=== PATIENT | male | born 1935 | race Caucasian/White ===

== ENCOUNTER → 2016-06-15 | Outpatient (CLI) | payer OTHER ==
[~2016-06-15] MED LIST: ALPR1TAB3 PO; AMLO5TAB4 PO; ASPI-232 PO; ASPI81TA28 PO; ATOR-22 PO; ATV5 PO; CHOL2000 PO; CLOP1TAB15 PO; ERGO500037 PO; FESO4TAB PO; FURO-85 PO; ISOS60TA2 PO; LEVO25TA PO; LEVO50TA PO; LORA-741 PO; MELATAB2 PO; METO-551 PO; NTRGSL/4 UT; OMEP40CA41 PO; PANT1TAB48 PO; PRS5 PO; RAMI2.5C PO; RANO500T PO; TRAM-10 PO; ULT50X PO; lorazepam PO
--- NOTE | 2016-06-15 12:28 | DIAGNOSTIC IMAGING REPORT ---
THYROID AND NECK ULTRASOUND CLINICAL HISTORY: Palpable abnormality. Hypothyroidism. COMPARISON STUDY: None TECHNIQUE: Sonography of the thyroid gland and the neck was performed. FINDINGS: The right lobe measures 3.7 x 1.6 x 1.6 cm the left lobe measures 4.2 x 1.5 x 1.4 cm. No thyroid nodule identified. No mass, enlarged lymph node or other abnormalities identified within the neck at site of palpable abnormality. IMPRESSION: 1. Unremarkable thyroid ultrasound. 2. No mass, enlarged lymph node or other sonographic abnormality within the neck at site of palpable abnormality. Electronically signed by: Gm Douglas M.D. 06/15/2016 12:26 PM Dictated Date/Time: 06/15/2016 12:25 PM
== END | disposition home or self-care (01) ==
LOC: C.ULTR 10:42
PROVIDERS: ATTEND Family Medicine
DX: R22.1 Localized swelling, mass and lump, neck (principal); E03.9 Hypothyroidism, unspecified; R79.89 Other specified abnormal findings of blood chemistry

== ENCOUNTER 2016-10-10 22:53 | Inpatient (IN) | payer OTHER ==
[~2016-10-10] VITALS: Ht 177.8 cm; Wt 97.1 kg
[~2016-10-10 22:53] MED LIST changes: -ASPI81TA28 PO; -ATV5 PO; -CHOL2000 PO; -CLOP1TAB15 PO; -ERGO500037 PO; -FESO4TAB PO; -LEVO25TA PO; -LORA-741 PO; -MELATAB2 PO; -NTRGSL/4 UT; -OMEP40CA41 PO; -PRS5 PO; -RAMI2.5C PO; -TRAM-10 PO; -ULT50X PO; -lorazepam PO
[2016-10-10] MEDS ORDERED: OMEP40CA41 PO (23:27)
[2016-10-10] MEDS ORDERED: ERGO500037 PO (23:27)
[2016-10-10] MEDS ORDERED: RAMI2.5C PO (23:27)
[2016-10-10] MEDS ORDERED: CLOP1TAB15 PO (23:27)
[2016-10-10] MEDS ORDERED: SODIUM CHLORIDE 0.9% 1000ML 1,000 ML IV STA (23:43)
[2016-10-11] VITALS (7 sets, daily range): BP systolic 122–155; BP diastolic 64–76; PULSE 72–88; TEMP 36.3–36.7; O2SAT 91–95; Ht 177.8 cm; Wt 97.1 kg
[2016-10-11 00:15] LABS: BASO % 0.2 %; BASO ABS # 0.02 K/uL (0-0.2); COMPLETE YES; HEMATOCRIT 45.2 % (42-52); IG% 0.2 %; MEAN CELL VOLUME 90.2 fL (80-100); MEAN CORPUSCULAR HEMOGLOBIN 31.7 pg (25-34); MEAN CORPUSCULAR HGB CONC 35.2 g/dl (32-36); MONO % 8.3 %; NEUT % 63.3 %; PLATELET COUNT 211 K/uL (130-400); RED BLOOD COUNT 5.01 M/uL (4.7-6.1); WHITE BLOOD COUNT 8.41 K/uL (4.8-10.8)
[2016-10-11 00:27] LABS: PARTIAL THROMBOPLASTIN RATIO 1.1; PROTHROMBIN TIME (PATIENT) 10.5 SECONDS (9.0-12.0)
[2016-10-11 00:34] LABS: BUN/CREATININE RATIO 14.4 (10-20); CREATININE 1.6 mg/dl (0.60-1.40); POTASSIUM 3.9 mmol/L (3.5-5.1)
[2016-10-11 01:15] LABS: MANUAL MICROSCOPIC REQUIRED? YES; REVIEW REQ? NO; SULFASALICYLIC ACID POS (NEG); URINE APPEARANCE TURBID (CLEAR); URINE COLOR RED; URINE SPECIFIC GRAVITY 1.037 (1.000-1.030)
[2016-10-11 01:18] LABS: URINE BACTERIA NEG (NEG); URINE RBC >30 /hpf (0-4); URINE WBC >30 /hpf (0-5)
--- NOTE | 2016-10-11 01:46 | EMERGENCY ROOM VISIT NOTE ---
History Report prepared by Rj: Holli Rodriguez Under the Supervision of: Dr. Oscar Lyles M.D. First contact with patient: 23:27 Chief Complaint: HEMATURIA Stated Complaint: BLOOD IN URINE AND BURNING History of Present Illness The patient is an 81 year old male who presents to the Emergency Room with complaints of persistent hematuria starting 1900 today. He reports burning with urination. He is passing clots and had difficulty urinating because he feels clogged. He reports feeling woozy. He denies any back pain, nausea, vomiting, numbness, weakness, and abdominal pain. He denies any recent falls or injury. He has only one kidney after the other was removed due to kidney cancer 8-10 years ago. He is on Plavix. He denies any history of hematuria or kidney stones. Source of History: patient, family Onset: 1899 today Position: other (urinary) Quality: other (hematuria) Timing: other (persistent) Associated Symptoms: No nausea, No vomiting, No abdominal pain, No back pain , No weakness, No numbness Note: Pt reports dysuria, difficulty urinating due to clots, feeling woozy. Review of Systems See HPI for pertinent positives & negatives. A total of 10 systems reviewed and were otherwise negative. Past Medical & Surgical Medical Problems: (1) Heart catheterization (2) Heart disease (3) HTN (hypertension) (4) Kidney disease (5) Right pyelonephrotomy Surgical Problems: (1) H/O hernia repair (2) History of heart valve replacement Old medical records were reviewed. Nurse's notes were reviewed and I agree with. Family History FH: cancer FH: heart disease Hypertension Kidney disease or stones Social History Smoking Status: Never Smoker Alcohol Use: none Marital Status: single Housing Status: lives alone Occupation Status: retired Current/Historical Medications Scheduled Alprazolam (Xanax), 1 MG PO HS Amlodipine Besylate (Norvasc), 5 MG PO DAILY Aspirin (Aspir-81), 81 MG PO DAILY Atorvastatin (Lipitor), 10 MG PO DAILY Clopidogrel (Plavix), 75 MG PO DAILY Ergocalciferol (Vitamin D 62795 Unit), 50,000 UNIT PO WK Furosemide (Lasix), 20 MG PO QAM Isosorbide Mononitrate (Imdur Ext Rel), 60 MG PO QAM Levothyroxine Sodium (Synthroid), 50 MCG PO DAILY Metoprolol Tartrate (Lopressor), 50 MG PO BID Omeprazole (Prilosec), 40 MG PO DAILY Ramipril (Ramipril), 1 CAP PO DAILY Allergies Coded Allergies: No Known Allergies (Unverified , 10/10/16) Physical Exam Vital Signs Date Time Temp Pulse Resp B/P (MAP) Pulse Ox O2 Delivery O2 Flow Rate FiO2 10/11/16 00:59 88 20 179/92 95 Room Air 10/11/16 00:23 80 20 163/79 96 Room Air 10/10/16 22:57 36.7 86 18 163/87 93 Room Air Physical Exam General: Non ill appearing older male. Well developed well nourished in no acute distress, breathing comfortably on room air. Normal speech HEENT: Normal cephalic atraumatic. Pupils are equal round and reactive to light. Extraocular movements are intact. Oropharynx is pink with moist mucous membranes. No swelling of the mouth lips or tongue. Neck: Supple with a midline trachea. No meningeal signs or stiffness, no JVD or bruits. No Stridor. Chest: Clear to auscultation bilaterally. No wheezes or rhonchi. No increased work of breathing. Heart: regular rate and rhythm. Abdomen: Soft nontender, nondistended without rebound guarding or rigidity. Extremities: No cyanosis clubbing or edema. No calf tenderness or assymetry Spine/Back. Non tender to palpation. No CVA tenderness Skin: Good turgor without rashes. Neurologic exam: Cranial nerves two through 12 are intact. Motor and sensation are intact and symmetrical throughout. Medical Decision & Procedures ER Provider Diagnostic Interpretation: Radiology results as stated below per my review and [facility] radiologist interpretation: CT Abdomen & Pelvis: Comparison: CT abdomen and pelvis, 05/23/13. There is a 3.4 cm intraluminal mass in the right posterior aspect of the urinary bladder which may represent bladder mass versus blood. Bladder ultrasound may be helpful for clarification. Status post right nephrectomy. Left kidney parapelvic cysts. No hydronephrosis or radiopaque urolithiasis. Clear lung bases. Hepatic stenosis. Splenic calcifications indicating old granulomatous disease. Normal gallbladder, pancreas, and left adrenal gland. Low -density right adrenal nodules consistent with benign adenomas. No evidence of bowel obstruction. Normal appendix. Sigmoid diverticulosis without acute diverticulitis. Bilateral fat-containing inguinal hernias. Stable 2.1 cm peripherally calcified lesion in the right hemipelvis intimate with the right iliac vessels. No acute osseous findings. Laboratory Results 10/10/16 23:55 Red Blood Count 5.01, Mean Corpuscular Volume 90.2, Mean Corpuscular Hemoglobin 31.7, Mean Corpuscular Hemoglobin Concent 35.2, Mean Platelet Volume 12.0, Neutrophils (%) (Auto) 63.3, Lymphocytes (%) (Auto) 25.0, Monocytes (%) (Auto) 8.3, Eosinophils (%) (Auto) 3.0, Basophils (%) (Auto) 0.2, Neutrophils # (Auto) 5.32, Lymphocytes # (Auto) 2.10, Monocytes # (Auto) 0.70, Eosinophils # (Auto) 0.25, Basophils # (Auto) 0.02 10/10/16 23:55 Test 10/10/16 23:55 White Blood Count 8.41 K/uL (4.8-10.8) Red Blood Count 5.01 M/uL (4.7-6.1) Hemoglobin 15.9 g/dL (14.0-18.0) Hematocrit 45.2 % (42-52) Mean Corpuscular Volume 90.2 fL (80-100) Mean Corpuscular Hemoglobin 31.7 pg (25-34) Mean Corpuscular Hemoglobin Concent 35.2 g/dl (32-36) Platelet Count 211 K/uL (130-400) Mean Platelet Volume 12.0 fL (7.4-10.4) Neutrophils (%) (Auto) 63.3 % Lymphocytes (%) (Auto) 25.0 % Monocytes (%) (Auto) 8.3 % Eosinophils (%) (Auto) 3.0 % Basophils (%) (Auto) 0.2 % Neutrophils # (Auto) 5.32 K/uL (1.4-6.5) Lymphocytes # (Auto) 2.10 K/uL (1.2-3.4) Monocytes # (Auto) 0.70 K/uL (0.11-0.59) Eosinophils # (Auto) 0.25 K/uL (0-0.5) Basophils # (Auto) 0.02 K/uL (0-0.2) RDW Standard Deviation 44.2 fL (36.4-46.3) RDW Coefficient of Variation 13.4 % (11.5-14.5) Immature Granulocyte % (Auto) 0.2 % Immature Granulocyte # (Auto) 0.02 K/uL (0.00-0.02) Prothrombin Time 10.5 SECONDS (9.0-12.0) Prothromb Time International Ratio 1.0 (0.9-1.1) Activated Partial Thromboplast Time 28.8 SECONDS (21.0-31.0) Partial Thromboplastin Ratio 1.1 Urine Color RED Urine Appearance TURBID (CLEAR) Urine pH (4.5-7.5) Urine Specific [place] 1.037 (1.000-1.030) Urine Protein POS (NEG) Urine Glucose (UA) (NEG) Urine Ketones (NEG) Urine Occult Blood (NEG) Urine Nitrite (NEG) Urine Bilirubin (NEG) Urine Urobilinogen (NEG) Urine Leukocyte Esterase (NEG) Urine RBC >30 /hpf (0-4) Urine WBC >30 /hpf (0-5) Urine Epithelial Cells 0-5 /lpf (0-5) Urine Bacteria NEG (NEG) Anion Gap 12.0 mmol/L (3-11) Est Creatinine Clear Calc Drug Dose 40.9 ml/min Estimated GFR () 45.5 Estimated GFR (Non- 39.3 BUN/Creatinine Ratio 14.4 (10-20) Calcium Level 9.0 mg/dl (8.5-10.1) Total Bilirubin 0.5 mg/dl (0.2-1) Direct Bilirubin 0.1 mg/dl (0-0.2) Aspartate Amino Transf (AST/SGOT) 39 U/L (15-37) Alanine Aminotransferase (ALT/SGPT) 57 U/L (12-78) Alkaline Phosphatase 60 U/L (45-117) Total Protein 7.9 gm/dl (6.4-8.2) Albumin 4.2 gm/dl (3.4-5.0) Lipase 327 U/L (73-393) Laboratory studies as stated above per my review. Medications Administered Medications (Trade) Dose Ordered Sig/Jacqui Route Start Time Stop Time Status Last Admin Dose Admin Sodium Chloride 1,000 ml @ 999 mls/hr Q1H1M STAT IV 10/10/16 23:43 10/11/16 00:43 DC 10/11/16 00:04 999 MLS/HR ED Course 2333: Past medical records reviewed. The patient was evaluated in room C6, and a complete history and physical examination were performed. 2343: NSS 1000 ml @ 999 mls/hr IV. 0120: I discussed the patient's case with LEXY Pelayo - urology. He recommends the patient be admitted to medicine. 0127: Upon reevaluation, the patient is resting comfortably. I discussed the results and treatment plan with the patient. He verbalized agreement of the treatment plan. The patient will be evaluated for further management. 0139: I discussed the patient's case with Dr. Gonzalez, [facility] [place]. The patient will be evaluated for further management. Medical Decision Differentials include, but are not limited to; UTI, hematuria, kidney stone, malignancy, electrolyte or metabolic abnormality. Medication Reconciliation: I attest that I have personally reviewed the patient' s current medication list. Blood pressure Screening: Patient was found to have an elevated blood pressure and was referred to the hospitalist for recheck and further treatment. This patient comes in as described above. He had new onset hematuria today . he 's passing what looks like large clots at times. He appears to be passing his urine and appears in no distress however his bladder scan shows only 70 mL. He does have a history of having his right kidney removed and accordingly the patient said some bladder tumors as well. His urologist retired from the [place] area and he has not followed up since. I did on his noncontrast CT and he has what appears to be either a bladder tumor or a hematoma and it may be both. He is on Plavix which deftly complicates his. His urinalysis does not show any definite infection. His creatinine is about baseline at 16. He is not anemic with a hemoglobin the 15 range I did discuss case with Dr. Dsouza who recommended we admit him to the medical service and have him hydrated. He does not recommend putting a catheter and as he feels this could likely make it worse unless the patient cannot urinate and then call him and he will come in and do a likely a three-way catheter. I did consult Dr. Hall and relayed this message to him as well. The patient will likely need cystoscopy when the Plavix is no longer in his system and they'll also recommended holding the Plavix. The patient and his daughter were happy the plan and he will be admitted for these reasons. Consults Time Called: 0113 Consulting Physician: Dr. Dsouza [facility] - [place] Returned Call: 0120 I discussed the patient's case with him. He recommends the patient be admitted to medicine. Additional Consults: Time Called: 0125 Consulted Physician: Dr. Gonzalez [facility] hospitalist Returned Call: 0139 Additional Comments: I discussed the patient's case with him. The patient will be evaluated for further management. Impression Primary Impression: Hematuria Additional Impressions: Bladder mass Platelet inhibition due to Plavix Scribe Attestation The scribe's documentation has been prepared under my direction and personally reviewed by me in its entirety. I confirm that the note above accurately reflects all work, treatment, procedures, and medical decision making performed by me. Departure Information Dispostion Being Evaluated By Hospitalist Referrals Dora Mcmahon PA-C (PCP) Patient Instructions My [facility] Problem Qualifiers
[2016-10-11] MEDS ORDERED: ONDANSETRON INJ 2 MG/ML 2 ML VIAL IV PRN (03:30)
[2016-10-11] MEDS ORDERED: ACETAMINOPHEN 325 MG TAB PO PRN (03:30)
[2016-10-11] MEDS ORDERED: POLYETHYLENE (MIRALAX) 17 GM PACK PO PRN (03:30)
[2016-10-11] MEDS ORDERED: NURSING VERBAL MED ORDER ONE ×2 (03:45→18:45)
[2016-10-11] MEDS ORDERED: TAMSULOSIN HCL 0.4 MG CAP PO STA (03:49)
[2016-10-11] MEDS ORDERED: TAMSULOSIN HCL 0.4 MG CAP ONE (03:51)
[2016-10-11] MEDS: CEFTRIAXONE SOD INJ 1 GM in DEXTROSE 5% ADD-VANTAGE 50ML 50 ML IV SCH (04:19)
[2016-10-11] MEDS: SODIUM CHLORIDE 0.9% 1000ML 1,000 ML IV SCH ×3 (04:19→23:32)
--- NOTE | 2016-10-11 05:10 | History and Physical ---
History & Physical Date & Time of Service: Oct 11, 2016 at 04:55 Chief Complaint: Marilu Hematuria Primary Care Physician: Dora Mcmahon PA-C History of Present Illness Source: patient 81-year-old male with a past medical history of coronary artery disease status post cardiac catheterization, hypertension, status post right nephrectomy for renal cell carcinoma presented to the ER with complaints of persistent hematuria which started about 6 PM. The patient stated that he noticed marilu blood with clots while he was urinating and also had some dysuria. Denied any abdominal pain, nausea, vomiting, diarrhea. Complains of feeling slightly lightheaded but denied any chest pain, palpitations or difficulty breathing. Denied any history of trauma. Denies any history of kidney stones or hematuria in the past Past Medical/Surgical History Medical Problems: (1) Heart catheterization Status: Resolved (2) Heart disease Status: Chronic (3) HTN (hypertension) Status: Chronic (4) Kidney disease Status: Chronic (5) Right pyelonephrotomy Status: Resolved Surgical Problems: (1) H/O hernia repair Status: Resolved (2) History of heart valve replacement Status: Resolved Family History FH: cancer FH: heart disease Hypertension Kidney disease or stones Social History Smoking Status: Never Smoker Marital Status: single Occupational Status: retired Immunizations History of Influenza Vaccine: Yes Influenza Vaccine Date: Feb 20, 2013 History of Tetanus Vaccine?: Yes Tetanus Immunization Date: May 23, 2008 History of Pneumococcal: Yes Pneumococcal Date: May 23, 2010 History of Hepatitis B Vaccine: No Multi-Drug Resistant Organisms History of MDRO: No Allergies Coded Allergies: No Known Allergies (Unverified , 10/10/16) Home Medications Scheduled Alprazolam (Xanax), 1 MG PO HS Amlodipine Besylate (Norvasc), 5 MG PO DAILY Atorvastatin (Lipitor), 10 MG PO DAILY Ergocalciferol (Vitamin D 50126 Unit), 50,000 UNIT PO WK Furosemide (Lasix), 20 MG PO QAM Isosorbide Mononitrate (Imdur Ext Rel), 60 MG PO QAM Levothyroxine Sodium (Synthroid), 50 MCG PO DAILY Metoprolol Tartrate (Lopressor), 50 MG PO BID Omeprazole (Prilosec), 40 MG PO DAILY Ramipril (Ramipril), 1 CAP PO DAILY Scheduled PRN Lorazepam (Lorazepam), 0.5 MG PO Q12 PRN for Anxiety Tramadol HCl (Tramadol HCl), 50 MG PO Q4H PRN for Pain Review of Systems Constitutional: No fever, No chills Eyes: No worsening of vision ENT: No hearing loss Respiratory: No cough, No sputum, No shortness of breath Cardiovascular: No chest pain Abdomen: No pain, No nausea, No vomiting Musculoskeletal: No joint pain Genitourinary - Male: + hematuria (Marilu), + dysuria, No urinary frequency, No urinary urgency, No urinary hesitancy Neurologic: No memory loss, No paralysis Endocrine: No fatigue Physical Exam Vital Signs Date Time Temp Pulse Resp B/P (MAP) Pulse Ox O2 Delivery O2 Flow Rate FiO2 10/11/16 03:44 97 16 188/76 93 Room Air 10/11/16 02:30 76 20 154/89 95 Room Air 10/11/16 00:59 88 20 179/92 95 Room Air 10/11/16 00:23 80 20 163/79 96 Room Air 10/10/16 22:57 36.7 86 18 163/87 93 Room Air General Appearance: WD/WN, no apparent distress Head: normocephalic Eyes: normal inspection ENT: normal ENT inspection, hearing grossly normal Neck: supple Respiratory/Chest: chest non-tender, lungs clear, normal breath sounds, no respiratory distress, no accessory muscle use Cardiovascular: regular rate, rhythm Abdomen/GI: normal bowel sounds, non tender, soft Back: normal inspection Neurologic/Psych: alert, normal mood/affect Skin: normal color Diagnostics Laboratory Results Results Past 24 Hours Test 10/10/16 23:55 Range/Units White Blood Count 8.41 4.8-10.8 K/uL Red Blood Count 5.01 4.7-6.1 M/uL Hemoglobin 15.9 14.0-18.0 g/dL Hematocrit 45.2 42-52 % Mean Corpuscular Volume 90.2 80-100 fL Mean Corpuscular Hemoglobin 31.7 25-34 pg Mean Corpuscular Hemoglobin Concent 35.2 32-36 g/dl Platelet Count 211 130-400 K/uL Mean Platelet Volume 12.0 7.4-10.4 fL Neutrophils (%) (Auto) 63.3 % Lymphocytes (%) (Auto) 25.0 % Monocytes (%) (Auto) 8.3 % Eosinophils (%) (Auto) 3.0 % Basophils (%) (Auto) 0.2 % Neutrophils # (Auto) 5.32 1.4-6.5 K/uL Lymphocytes # (Auto) 2.10 1.2-3.4 K/uL Monocytes # (Auto) 0.70 0.11-0.59 K/uL Eosinophils # (Auto) 0.25 0-0.5 K/uL Basophils # (Auto) 0.02 0-0.2 K/uL RDW Standard Deviation 44.2 36.4-46.3 fL RDW Coefficient of Variation 13.4 11.5-14.5 % Immature Granulocyte % (Auto) 0.2 % Immature Granulocyte # (Auto) 0.02 0.00-0.02 K/uL Prothrombin Time 10.5 9.0-12.0 SECONDS Prothromb Time International Ratio 1.0 0.9-1.1 Activated Partial Thromboplast Time 28.8 21.0-31.0 SECONDS Partial Thromboplastin Ratio 1.1 Urine Color RED Urine Appearance TURBID CLEAR Urine pH 4.5-7.5 Urine Specific [place] 1.037 1.000-1.030 Urine Protein POS NEG Urine Glucose (UA) NEG Urine Ketones NEG Urine Occult Blood NEG Urine Nitrite NEG Urine Bilirubin NEG Urine Urobilinogen NEG Urine Leukocyte Esterase NEG Urine RBC >30 0-4 /hpf Urine WBC >30 0-5 /hpf Urine Epithelial Cells 0-5 0-5 /lpf Urine Bacteria NEG NEG Sodium Level 144 136-145 mmol/L Potassium Level 3.9 3.5-5.1 mmol/L Chloride Level 109 98-107 mmol/L Carbon Dioxide Level 23 21-32 mmol/L Anion Gap 12.0 3-11 mmol/L Blood Urea Nitrogen 23 7-18 mg/dl Creatinine 1.60 0.60-1.40 mg/dl Est Creatinine Clear Calc Drug Dose 40.9 ml/min Estimated GFR () 45.5 Estimated GFR (Non- 39.3 BUN/Creatinine Ratio 14.4 10-20 Random Glucose 125 70-99 mg/dl Calcium Level 9.0 8.5-10.1 mg/dl Total Bilirubin 0.5 0.2-1 mg/dl Direct Bilirubin 0.1 0-0.2 mg/dl Aspartate Amino Transf (AST/SGOT) 39 15-37 U/L Alanine Aminotransferase (ALT/SGPT) 57 12-78 U/L Alkaline Phosphatase 60 45-117 U/L Total Protein 7.9 6.4-8.2 gm/dl Albumin 4.2 3.4-5.0 gm/dl Lipase 327 73-393 U/L Microbiology Results 10/10/16 Urine Culture, Received Pending Diagnostic Radiology Abdominal CT scan: 3.4 cm and intraluminal mass in the right posterior aspect of the urinary bladder which may represent bladder mass versus blood. Bladder ultrasound may be helpful for clarification. Status post right nephrectomy. Left kidney parapelvic cysts. No hydronephrosis or radiopaque urolithiasis. Clear lung bases. Hepatic stenosis. Splenic calcifications indicating old granulomatous disease. Normal gallbladder, pancreas, and left adrenal gland. Low -density right adrenal nodules consistent with benign adenomas. No evidence of bowel obstruction. Normal appendix. Sigmoid diverticulosis without acute diverticulitis. Bilateral fat-containing inguinal hernias. Stable 2.1 cm peripherally calcified lesion in the right hemipelvis intimate with the right iliac vessels. No acute osseous findings. Impression Assessment and Plan 81-year-old male with a past medical history of coronary artery disease status post cardiac catheterization, hypertension, status post right nephrectomy for renal cell carcinoma presented to the ER with complaints of persistent hematuria which started about [address] abdomen and pelvis revealed 3.4 cm and intraluminal mass in the right posterior aspect of the urinary bladder which may represent bladder mass versus blood. Marilu hematuria with blood clots: Bladder mass versus stone versus blood clot - CT abdomen and pelvis : 3.4 cm intraluminal mass in the urinary bladder - Continue IV fluids - Consult urology - Flomax - No [place] catheter per urology - Rocephin IV empirically for potential infection - Nothing by mouth - Monitor H&H CKD status post right nephrectomy - Creatinine at 1.6, baseline around 1.4 -Continue IV fluids and monitor creatinine Coronary artery disease: Status post cardiac catheterization - Continue aspirin, Plavix, Lipitor, ramipril, Lopressor - Aspirin and Plavix have been continued for now considering history of coronary artery disease CHF: - Continue Lasix -Daily weights with I's and O's Hypertension: - Continue Norvasc and ramipril , Imdur Hypothyroidism: - Continue Synthroid DVT prophylaxis: SCDs Avoid chemical anticoagulation in light of hematuria DO NOT RESUSCITATE Disposition: Admitted to MedSurg Level of Care Med/Surg Resuscitation Status DO NOT RESUSCITATE VTE Prophylaxis VTE Risk Assessment Done? Y/N: Yes Risk Level: Moderate Given or contraindicated: SCD's Resident Tracking Resident Involvement: Resident Care Provided Care Provided: [facility] Medicine Assessment and Plan Attending Addendum: I have physically seen and examined this patient, have directed their medical care, have supervised the medical residents activities, and agree with the H&P as noted above, with the following changes: NONE
[2016-10-11] MEDS: LEVOTHYROXINE 50 MCG TAB PO SCH (06:00)
--- NOTE | 2016-10-11 07:07 | DIAGNOSTIC IMAGING REPORT ---
CT OF THE ABDOMEN AND PELVIS WITHOUT CONTRAST, STONE PROTOCOL CLINICAL HISTORY: Hematuria. History of renal cancer. COMPARISON STUDY: CT of the abdomen and pelvis May 23, 2013. TECHNIQUE: Helical axial images of the abdomen and pelvis were obtained without IV or oral contrast according to renal stone protocol. FINDINGS: Fatty infiltration of the liver is noted. The patient is status post right nephrectomy. Several right adrenal nodules are unchanged since exam of May 23, 2013 consistent with adenomas. There are no abnormalities within the right nephrectomy bed. Evaluation of the abdomen and pelvis is suboptimal on this unenhanced exam. There is fatty infiltration of the liver. There are left-sided parapelvic cysts. There is no left hydronephrosis. No left ureteral calculi are present. There is no evidence for a bowel obstruction. This extensive colonic diverticulosis without evidence for acute diverticulitis. A 2 cm peripherally calcified abnormality within the right hemipelvis is unchanged since CT of May 23, 2013. This is adjacent to the iliac vessels and could reflect a stable aneurysm or peripherally calcified lesion. Note is made of a 3.3 x 1.9 cm hyperdensity within the right posterior aspect of the bladder. There is no left hydronephrosis. No enlarged pelvic lymph nodes are present. There are fat-containing bilateral inguinal hernias. IMPRESSION: 1. 3.3 x 1.9 cm mass-like hyperdensity within the right posterior aspect of the bladder. This could reflect a urothelial malignancy or hemorrhage and could be correlated with cystoscopy. 2. Status post right nephrectomy. No evidence for recurrent malignancy within the nephrectomy bed. 3. Left-sided parapelvic cysts. No hydronephrosis. 4. Stable 2 cm peripherally calcified abnormality within the right hemipelvis adjacent to the iliac vessels. This could reflect a stable aneurysm or peripherally calcified lesion. Electronically signed by: Gm Douglas M.D. 10/11/2016 7:06 AM Dictated Date/Time: 10/11/2016 6:53 AM
[2016-10-11] MEDS: ISOSORBIDE MONONITRATE 60 MG TABCR PO SCH (08:11)
[2016-10-11] MEDS: FUROSEMIDE 20 MG TAB PO SCH (08:11)
[2016-10-11] MEDS: ENALAPRIL MALEATE 10 MG TAB PO SCH (08:12)
[2016-10-11] MEDS: ATORVASTATIN 20 MG TAB PO SCH (08:12)
[2016-10-11] MEDS: AMLODIPINE BESYLATE 5 MG TAB PO SCH (08:12)
[2016-10-11] MEDS: METOPROLOL TARTRATE 50 MG TAB PO SCH ×2 (08:12→21:04)
[2016-10-11] MEDS: PANTOprazole SOD 40 MG TAB PO SCH (08:13)
--- NOTE | 2016-10-11 08:31 | Urology Consultation ---
History General Date of Service: Oct 11, 2016. Chief Complaint: gross hematuria Primary Care Physician: Dora Mcmahon PA-C Pt seen a urologist before?: Yes (Dr. Beltran) If yes, why?: s/p right nephrectomy History of Present Illness 81 yo male presents to [facility] with c/o gross hematuria that started last evening around 7pm. He is s/p right nephrectomy [address] Last [address] Dr[address] Beltran 2 years ago. No urology f/u since. He reports difficulty voiding with some retention x 3hrs overnight, but then voided some clots and has been voiding well since. Urine remains [place] colored. H&H is stable at 15.9 and 45.2. Cr is noted to be slightly elevated at 1.6 Baseline of 1.3 noted last February. Pt had CT scan on admission showing ? 3cm bladder mass vs clot. He is currently on Plavix. Hx of cardiac cath and valve replacement. Imaging Imaging: CT Laboratory Last 24 Hours Test 10/10/16 23:55 White Blood Count 8.41 K/uL Red Blood Count 5.01 M/uL Hemoglobin 15.9 g/dL Hematocrit 45.2 % Mean Corpuscular Volume 90.2 fL Mean Corpuscular Hemoglobin 31.7 pg Mean Corpuscular Hemoglobin Concent 35.2 g/dl Platelet Count 211 K/uL Mean Platelet Volume 12.0 fL Neutrophils (%) (Auto) 63.3 % Lymphocytes (%) (Auto) 25.0 % Monocytes (%) (Auto) 8.3 % Eosinophils (%) (Auto) 3.0 % Basophils (%) (Auto) 0.2 % Neutrophils # (Auto) 5.32 K/uL Lymphocytes # (Auto) 2.10 K/uL Monocytes # (Auto) 0.70 K/uL Eosinophils # (Auto) 0.25 K/uL Basophils # (Auto) 0.02 K/uL RDW Standard Deviation 44.2 fL RDW Coefficient of Variation 13.4 % Immature Granulocyte % (Auto) 0.2 % Immature Granulocyte # (Auto) 0.02 K/uL Prothrombin Time 10.5 SECONDS Prothromb Time International Ratio 1.0 Activated Partial Thromboplast Time 28.8 SECONDS Partial Thromboplastin Ratio 1.1 Urine Color RED Urine Appearance TURBID Urine pH Urine Specific [place] 1.037 Urine Protein POS Urine Glucose (UA) Urine Ketones Urine Occult Blood Urine Nitrite Urine Bilirubin Urine Urobilinogen Urine Leukocyte Esterase Urine RBC >30 /hpf Urine WBC >30 /hpf Urine Epithelial Cells 0-5 /lpf Urine Bacteria NEG Sodium Level 144 mmol/L Potassium Level 3.9 mmol/L Chloride Level 109 mmol/L Carbon Dioxide Level 23 mmol/L Anion Gap 12.0 mmol/L Blood Urea Nitrogen 23 mg/dl Creatinine 1.60 mg/dl Est Creatinine Clear Calc Drug Dose 40.9 ml/min Estimated GFR () 45.5 Estimated GFR (Non- 39.3 BUN/Creatinine Ratio 14.4 Random Glucose 125 mg/dl Calcium Level 9.0 mg/dl Total Bilirubin 0.5 mg/dl Direct Bilirubin 0.1 mg/dl Aspartate Amino Transf (AST/SGOT) 39 U/L Alanine Aminotransferase (ALT/SGPT) 57 U/L Alkaline Phosphatase 60 U/L Total Protein 7.9 gm/dl Albumin 4.2 gm/dl Lipase 327 U/L Problem List Medical Problems: (1) Bladder mass Status: Acute (2) Hematuria Status: Acute (3) Platelet inhibition due to Plavix Status: Acute Past History cancer (kidney), coronary artery disease, hypertension, other (kidney disease) Past Surgical History: cardiac catheterization, other (hernia repair, heart valve replacement, right nephrectomy ) Family History FH: cancer FH: heart disease Hypertension Kidney disease or stones Social History Hx Tobacco Use In Past Year?: No Smoking: non-smoker Drug use: none Marital status: single Occupation status: retired Immunizations History of Influenza Vaccine: Yes Influenza Vaccine Date: Feb 20, 2013 History of Tetanus Vaccine?: Yes Tetanus Immunization Date: May 23, 2008 History of Pneumococcal: Yes Pneumococcal Date: May 23, 2010 History of Hepatitis B Vaccine: No History of MDRO No Allergies Coded Allergies: No Known Allergies (Unverified , 10/10/16) Medications Home Medications: Home Meds and Scripts Medications Dose Route/Sig Max Daily Dose Days Date Category Dose Instructions Ramipril 2.5 Mg Cap 1 Cap PO DAILY 90 10/10/16 Reported Vitamin D 37015 Unit (Ergocalciferol) 50,000 Unit Cap 50,000 Unit PO WK 10/10/16 Reported wednesdays Plavix (Clopidogrel Bisulfate) 75 Mg Tab 75 Mg PO DAILY 10/10/16 Reported Prilosec (Omeprazole) 40 Mg Cap 40 Mg PO DAILY 10/10/16 Reported Lipitor (Atorvastatin Calcium) 20 Mg Tab 10 Mg PO DAILY 10/27/14 Reported Lasix (Furosemide) 20 Mg Tab 20 Mg PO QAM 05/25/13 Rx Aspir-81 (Aspirin) 81 Mg Tab 81 Mg PO DAILY 05/23/13 Reported Imdur Ext Rel (Isosorbide Mononitrate) 60 Mg Tab 60 Mg PO QAM 05/23/13 Reported Synthroid (Levothyroxine Sodium) 50 Mcg Tab 50 Mcg PO DAILY 05/23/13 Reported Norvasc (Amlodipine Besylate) 5 Mg Tab 5 Mg PO DAILY 05/23/13 Reported Lopressor (Metoprolol Tartrate) 50 Mg Tab 50 Mg PO BID 05/23/13 Reported Xanax (Alprazolam) 1 Mg Tab 1 Mg PO HS 05/23/13 Reported Inpatient Medications: Current Inpatient Medications Medications (Trade) Dose Ordered Sig/Jacqui Route Start Time Stop Time Status Last Admin Dose Admin Acetaminophen (Tylenol Tab) 650 mg Q4H PRN PO 10/11/16 03:30 11/10/16 03:29 Polyethylene (Miralax Powder Packet) 17 gm DAILY PRN PO 10/11/16 03:30 11/10/16 03:29 Ondansetron HCl (Zofran Inj) 4 mg Q6H PRN IV 10/11/16 03:30 11/10/16 03:29 Alprazolam (Xanax Tab) 1 mg HS PO 10/11/16 21:00 11/10/16 20:59 Amlodipine Besylate (Norvasc Tab) 5 mg DAILY PO 10/11/16 09:00 11/10/16 08:59 Aspirin (Ecotrin Tab) 81 mg DAILY PO 10/11/16 09:00 11/10/16 08:59 Atorvastatin Calcium (Lipitor Tab) 10 mg DAILY PO 10/11/16 09:00 11/10/16 08:59 Clopidogrel Bisulfate (plAVix TAB) 75 mg DAILY PO 10/11/16 09:00 11/10/16 08:59 Furosemide (Lasix Tab) 20 mg QAM PO 10/11/16 09:00 11/10/16 08:59 Isosorbide Mononitrate (Imdur Ext Rel Tab) 60 mg QAM PO 10/11/16 09:00 11/10/16 08:59 Levothyroxine Sodium (Synthroid Tab) 50 mcg DAILYBB PO 10/11/16 06:00 11/10/16 06:59 Metoprolol Tartrate (Lopressor Tab) 50 mg BID PO 10/11/16 09:00 11/10/16 08:59 Pantoprazole Sodium (Protonix Tab) 40 mg DAILY PO 10/11/16 09:00 11/10/16 08:59 Enalapril Maleate (Vasotec Tab) 10 mg QAM PO 10/11/16 09:00 11/10/16 08:59 Sodium Chloride 1,000 ml @ 100 mls/hr Q10H IV 10/11/16 04:00 11/10/16 03:59 10/11/16 04:19 100 MLS/HR Ceftriaxone Sodium 1 gm/ Dextrose 50 ml @ 100 mls/hr Q24H IV 10/11/16 04:00 10/21/16 03:59 10/11/16 04:19 100 MLS/HR Ciprofloxacin/ Dextrose 200 ml @ 100 mls/hr PREOP IV 10/12/16 06:00 10/12/16 18:00 Review of Systems Review of Systems Constitutional: No fever, No chills Eyes: No double vision Neurological: No dizzy Endocrine: No excessive thirst Gastrointestinal: No abdominal pain, No nausea, No vomiting Cardiovascular: No chest pain Respiratory: No shortness of breath Skin: No rash Musculoskeletal: No back pain Male : + blood in urine, No painful urination Physical Exam Vital Signs: Vital Signs Past 12 Hours Date Time Temp Pulse Resp B/P (MAP) Pulse Ox O2 Delivery O2 Flow Rate FiO2 10/11/16 07:57 36.3 88 15 143/76 (98) 95 Room Air 10/11/16 07:28 Room Air 10/11/16 04:00 36.6 81 18 155/76 94 Room Air 10/11/16 04:00 Room Air 10/11/16 03:44 97 16 188/76 93 Room Air 10/11/16 02:30 76 20 154/89 95 Room Air 10/11/16 00:59 88 20 179/92 95 Room Air 10/11/16 00:23 80 20 163/79 96 Room Air 10/10/16 22:57 36.7 86 18 163/87 93 Room Air Physical Exam: General Appearance: no apparent distress Eyes: bilateral eyes normal inspection ENT: hearing grossly normal Neck: no JVD Respiratory/Chest: no respiratory distress, no accessory muscle use Cardiovascular: no JVD Extremities: normal inspection Neurologic/Psychiatric: alert, normal mood/affect, oriented x 3 Skin: normal color Assessment & Plan Assessment & Plan A/P: Gross hematuria AFVSS. Recommend discontinuing all anticoagulation while actively bleeding. Discussed with Dr. Collins. Will hold for now. Recommend the pt have cysto and possible TURBT for ? bladder tumor. Unfortunately this cannot be performed tomorrow given his recent administration of Plavix and ASA this morning. Will tentatively plan for cysto with possible TURBT next 10-17. This can be done as an outpatient. Will order pre-op chest x-ray and EKG. UC&S is pending. Will order a urine cytology. For now, will avoid corral catheter and observe voiding and hematuria. Would need corral placed if he develops clot retention. Continue to monitor H&H. Supportive management with transfusions PRN. Thanks for the consult. Will continue to follow along with primary service at this time. Possible d/c home from [facility] if the pt is stable.
[2016-10-11] MEDS ORDERED: CLOPIDOGREL BISULFATE 75 MG TAB PO SCH (09:00)
[2016-10-11] MEDS ORDERED: ASPIRIN 81 MG ECTAB PO SCH (09:00)
--- NOTE | 2016-10-11 09:05 | DIAGNOSTIC IMAGING REPORT ---
CHEST 2 VIEWS ROUTINE CLINICAL HISTORY: Preoperative chest COMPARISON STUDY: 10/27/2014 FINDINGS: There are postsurgical changes of a midline sternotomy. There is no failure. There is no focal pulmonary consolidation. The heart is borderline enlarged. There is an azygos fissure. No pleural effusions are visualized.[ IMPRESSION: No active disease in the chest. Electronically signed by: Ford Rae M.D. 10/11/2016 9:04 AM Dictated Date/Time: 10/11/2016 9:03 AM
[2016-10-11 10:31] LABS: HEMATOCRIT 39.9 % (42-52)
--- NOTE | 2016-10-11 10:31 | Progress Note ---
Subjective Date of Service: Oct 11, 2016. Subjective Pt evaluation today including: conversation w/ patient, physical exam, lab review, conversation w/ regulatory affairs consultant, review of inpatient medication list Pain: pain when trying to void, relieved with urination PO Intake: poor Voiding: voiding difficulty (straining, pressure, hematuria) c/o difficulty urinating, strained for several hours last night until able to void completely this AM similar issue, has to void, very little output and mostly blood concern for clot retention appreciate urology consult, discussed with Brenna Mason plan for TURBT on Tuesday 10/17, can be outpatient goal is to hydrate, follow up urine culture and see if patient can void consistently Problem List Medical Problems: (1) Bladder mass Status: Acute (2) Hematuria Status: Acute (3) Platelet inhibition due to Plavix Status: Acute Review of Systems Cardiac: + edema (mild, chronic) Male : + hematuria, + problem reported (straining, retention) All Other Systems: Reviewed and Negative Medications Current Inpatient Medications Medications (Trade) Dose Ordered Sig/Jacqui Route Start Time Stop Time Status Last Admin Dose Admin Acetaminophen (Tylenol Tab) 650 mg Q4H PRN PO 10/11/16 03:30 11/10/16 03:29 Polyethylene (Miralax Powder Packet) 17 gm DAILY PRN PO 10/11/16 03:30 11/10/16 03:29 Ondansetron HCl (Zofran Inj) 4 mg Q6H PRN IV 10/11/16 03:30 11/10/16 03:29 Alprazolam (Xanax Tab) 1 mg HS PO 10/11/16 21:00 11/10/16 20:59 Amlodipine Besylate (Norvasc Tab) 5 mg DAILY PO 10/11/16 09:00 11/10/16 08:59 10/11/16 08:12 5 MG Atorvastatin Calcium (Lipitor Tab) 10 mg DAILY PO 10/11/16 09:00 11/10/16 08:59 10/11/16 08:12 10 MG Furosemide (Lasix Tab) 20 mg QAM PO 10/11/16 09:00 11/10/16 08:59 10/11/16 08:11 20 MG Isosorbide Mononitrate (Imdur Ext Rel Tab) 60 mg QAM PO 10/11/16 09:00 11/10/16 08:59 10/11/16 08:11 60 MG Levothyroxine Sodium (Synthroid Tab) 50 mcg DAILYBB PO 10/11/16 06:00 11/10/16 06:59 Metoprolol Tartrate (Lopressor Tab) 50 mg BID PO 10/11/16 09:00 11/10/16 08:59 10/11/16 08:12 50 MG Pantoprazole Sodium (Protonix Tab) 40 mg DAILY PO 10/11/16 09:00 11/10/16 08:59 10/11/16 08:13 40 MG Enalapril Maleate (Vasotec Tab) 10 mg QAM PO 10/11/16 09:00 11/10/16 08:59 10/11/16 08:12 10 MG Sodium Chloride 1,000 ml @ 100 mls/hr Q10H IV 10/11/16 04:00 11/10/16 03:59 10/11/16 04:19 100 MLS/HR Ceftriaxone Sodium 1 gm/ Dextrose 50 ml @ 100 mls/hr Q24H IV 10/11/16 04:00 10/21/16 03:59 10/11/16 04:19 100 MLS/HR Tramadol HCl (Ultram Tab) 50 mg Q4H PRN PO 10/11/16 10:15 11/10/16 10:14 UNV Objective Vital Signs Date Time Temp Pulse Resp B/P (MAP) Pulse Ox O2 Delivery O2 Flow Rate FiO2 10/11/16 08:48 95 Room Air 10/11/16 07:57 36.3 88 15 143/76 (98) 95 Room Air 10/11/16 07:28 Room Air 10/11/16 04:00 36.6 81 18 155/76 94 Room Air 10/11/16 04:00 Room Air 10/11/16 03:44 97 16 188/76 93 Room Air 10/11/16 02:30 76 20 154/89 95 Room Air 10/11/16 00:59 88 20 179/92 95 Room Air 10/11/16 00:23 80 20 163/79 96 Room Air 10/10/16 22:57 36.7 86 18 163/87 93 Room Air Physical Exam General Appearance: WD/WN, no apparent distress Eyes: normal inspection, EOMI, sclerae normal ENT: normal ENT inspection, hearing grossly normal, pharynx normal Neck: supple, no adenopathy, no JVD, trachea midline Respiratory/Chest: chest non-tender, lungs clear, normal breath sounds, no respiratory distress, no accessory muscle use Cardiovascular: regular rate, rhythm, no gallop, no JVD, no murmur Abdomen: normal bowel sounds, non tender, soft, no organomegaly, + distended ( mildly), + pertinent finding (suprapubic tenderness, fullness) Extremities: normal range of motion, non-tender, normal inspection, no calf tenderness, pelvis stable, + pedal edema (trace ) Neurologic/Psychiatric: coroner forensic technician II-XII nml as tested, no motor/sensory deficits, alert, normal mood/affect, oriented x 3 Skin: normal color, warm/dry, no rash Lymphatic: no adenopathy Laboratory Results Last 24 Hours Test 10/10/16 23:55 10/11/16 10:06 White Blood Count 8.41 K/uL Red Blood Count 5.01 M/uL Hemoglobin 15.9 g/dL Hematocrit 45.2 % Mean Corpuscular Volume 90.2 fL Mean Corpuscular Hemoglobin 31.7 pg Mean Corpuscular Hemoglobin Concent 35.2 g/dl Platelet Count 211 K/uL Mean Platelet Volume 12.0 fL Neutrophils (%) (Auto) 63.3 % Lymphocytes (%) (Auto) 25.0 % Monocytes (%) (Auto) 8.3 % Eosinophils (%) (Auto) 3.0 % Basophils (%) (Auto) 0.2 % Neutrophils # (Auto) 5.32 K/uL Lymphocytes # (Auto) 2.10 K/uL Monocytes # (Auto) 0.70 K/uL Eosinophils # (Auto) 0.25 K/uL Basophils # (Auto) 0.02 K/uL RDW Standard Deviation 44.2 fL RDW Coefficient of Variation 13.4 % Immature Granulocyte % (Auto) 0.2 % Immature Granulocyte # (Auto) 0.02 K/uL Prothrombin Time 10.5 SECONDS Prothromb Time International Ratio 1.0 Activated Partial Thromboplast Time 28.8 SECONDS Partial Thromboplastin Ratio 1.1 Urine Color RED Urine Appearance TURBID Urine pH Urine Specific [place] 1.037 Urine Protein POS Urine Glucose (UA) Urine Ketones Urine Occult Blood Urine Nitrite Urine Bilirubin Urine Urobilinogen Urine Leukocyte Esterase Urine RBC >30 /hpf Urine WBC >30 /hpf Urine Epithelial Cells 0-5 /lpf Urine Bacteria NEG Sodium Level 144 mmol/L Potassium Level 3.9 mmol/L Chloride Level 109 mmol/L Carbon Dioxide Level 23 mmol/L Anion Gap 12.0 mmol/L Blood Urea Nitrogen 23 mg/dl Creatinine 1.60 mg/dl Est Creatinine Clear Calc Drug Dose 40.9 ml/min Estimated GFR () 45.5 Estimated GFR (Non- 39.3 BUN/Creatinine Ratio 14.4 Random Glucose 125 mg/dl Calcium Level 9.0 mg/dl Total Bilirubin 0.5 mg/dl Direct Bilirubin 0.1 mg/dl Aspartate Amino Transf (AST/SGOT) 39 U/L Alanine Aminotransferase (ALT/SGPT) 57 U/L Alkaline Phosphatase 60 U/L Total Protein 7.9 gm/dl Albumin 4.2 gm/dl Lipase 327 U/L Assessment and Plan 81-year-old male with a past medical history of coronary artery disease status post cardiac catheterization, hypertension, status post right nephrectomy for renal cell carcinoma presented to the ER with complaints of persistent hematuria which started about [address] abdomen and pelvis revealed 3.4 cm and intraluminal mass in the right posterior aspect of the urinary bladder which may represent bladder mass versus blood. Jaswinder hematuria with blood clots: Bladder mass versus stone versus blood clot appreciate urology consult, patient needs TURBT, will be done 10/17 as outpatient need to allow Plavix to wash out, last dose was this morning, now discontinued will check H/H today and tomorrow follow up on urine culture, continue empiric Rocephin urine cytology ordered if he has issues with clot retention, will need corral d/w RN, she will bladder scan if unable to void in a few hours continue NSS at 100cc/hr Flomax CKD status post right nephrectomy Creatinine at 1.6 which is near baseline, no signs of acute renal failure Continue IV fluids, check BMP tomorrow AM Coronary artery disease: Status post cardiac catheterization hold aspirin and Plavix with bleeding and plans for TURBT next week continue Lipitor, ramipril, Lopressor Chronic diastolic heart failure: hold Lasix for now while we hydrate will watch closely for volume overload, pulmonary edema continue Ramipril, Lopressor Hypertension: - Continue Norvasc and ramipril , Imdur, Lopressor Hypothyroidism: - Continue Synthroid DVT prophylaxis: SCDs Avoid chemical anticoagulation in light of hematuria DO NOT RESUSCITATE
[2016-10-11] MEDS: TRAMADOL HCL 50 MG TAB PO PRN ×2 (13:40→18:22)
[2016-10-11] MEDS ORDERED: SODIUM CHLORIDE 0.9% 500ML 500 ML IV SCH (19:00)
[2016-10-11] MEDS ORDERED: LIDOCAINE HCL 2% JELLY 30 ML TUBE EXT ONE (19:39)
[2016-10-11] MEDS ORDERED: LIDOCAINE 2% JELLY 5 ML TUBE EXT PRN (19:45)
[2016-10-11] MEDS ORDERED: NURSING DECISION MEDICATION ORDER SCH (19:45)
[2016-10-11] MEDS: LORAZEPAM 0.5 MG TAB PO PRN (19:59)
[2016-10-11] MEDS: ALPRAZOLAM 0.5 MG TAB PO SCH (21:04)
[2016-10-12] VITALS (7 sets, daily range): BP systolic 122–166; BP diastolic 72–81; PULSE 65–85; TEMP 36.5–36.8; O2SAT 92–96
[2016-10-12] MEDS: CEFTRIAXONE SOD INJ 1 GM in DEXTROSE 5% ADD-VANTAGE 50ML 50 ML IV SCH (03:12)
[2016-10-12] MEDS ORDERED: CIPROFLOXACIN 400MG / 200ML D5W IV ONE (06:00)
[2016-10-12] MEDS: LEVOTHYROXINE 50 MCG TAB PO SCH (06:00)
[2016-10-12] MEDS ORDERED: CIPROFLOXACIN / D5W 400 MG IV SCH (06:00)
[2016-10-12 07:47] LABS: BASO % 0.3 %; BASO ABS # 0.02 K/uL (0-0.2); COMPLETE YES; EOS % 4.9 %; HEMATOCRIT 41.3 % (42-52); IG% 0.1 %; LYMPH % 29.2 %; LYMPH ABS # 2.13 K/uL (1.2-3.4); MEAN CELL VOLUME 91.6 fL (80-100); MEAN CORPUSCULAR HGB CONC 33.9 g/dl (32-36); MEAN PLATELET VOLUME 11.5 fL (7.4-10.4); NEUT % 55.5 %; PLATELET COUNT 185 K/uL (130-400); RED BLOOD COUNT 4.51 M/uL (4.7-6.1)
--- NOTE | 2016-10-12 08:21 | Progress Note ---
Subjective Date of Service: Oct 12, 2016. Subjective Pt evaluation today including: conversation w/ patient, chart review, lab review Voiding: corral catheter in place (14Fr corral catheter draining dark [place] urine ) 81 yo male with gross hematuria. ? bladder mass on CT. 14Fr corral catheter placed yesterday for clot retention. Draining dark [place] colored urine this morning with some clot. Plavix and ASA stopped yesterday. H&H of 14.0 and 41.3 this morning. Pt denies pain. Problem List Medical Problems: (1) Bladder mass Status: Acute (2) Hematuria Status: Acute (3) Platelet inhibition due to Plavix Status: Acute Review of Systems Constitutional: No fever, No chills Respiratory: No shortness of breath Cardiac: No chest pain Abdomen: No pain, No nausea, No vomiting Male : + hematuria Heme: + abnormal bleeding/bruising Objective Vital Signs Date Time Temp Pulse Resp B/P (MAP) Pulse Ox O2 Delivery O2 Flow Rate FiO2 10/12/16 07:43 36.5 65 12 132/78 (96) 95 Room Air 10/12/16 07:30 Room Air 10/11/16 23:38 Room Air 10/11/16 23:19 36.5 72 16 130/64 (86) 91 Room Air 10/11/16 21:00 73 133/69 (90) 10/11/16 19:30 95 Room Air 10/11/16 15:23 36.7 79 16 122/73 (89) 95 Room Air 10/11/16 08:48 95 Room Air Physical Exam General Appearance: no apparent distress Eyes: normal inspection ENT: hearing grossly normal Neck: no JVD Respiratory/Chest: no respiratory distress, no accessory muscle use Cardiovascular: no JVD Extremities: normal inspection Neurologic/Psychiatric: alert, normal mood/affect, oriented x 3 Skin: normal color Laboratory Results Last 24 Hours Test 10/11/16 10:06 10/12/16 07:25 Hemoglobin 13.3 g/dL 14.0 g/dL Hematocrit 39.9 % 41.3 % White Blood Count 7.30 K/uL Red Blood Count 4.51 M/uL Mean Corpuscular Volume 91.6 fL Mean Corpuscular Hemoglobin 31.0 pg Mean Corpuscular Hemoglobin Concent 33.9 g/dl Platelet Count 185 K/uL Mean Platelet Volume 11.5 fL Neutrophils (%) (Auto) 55.5 % Lymphocytes (%) (Auto) 29.2 % Monocytes (%) (Auto) 10.0 % Eosinophils (%) (Auto) 4.9 % Basophils (%) (Auto) 0.3 % Neutrophils # (Auto) 4.05 K/uL Lymphocytes # (Auto) 2.13 K/uL Monocytes # (Auto) 0.73 K/uL Eosinophils # (Auto) 0.36 K/uL Basophils # (Auto) 0.02 K/uL RDW Standard Deviation 46.3 fL RDW Coefficient of Variation 13.8 % Immature Granulocyte % (Auto) 0.1 % Immature Granulocyte # (Auto) 0.01 K/uL Assessment and Plan A/P: Gross hematuria Hematuria persists today. Unfortunately a 14Fr catheter is not ideal for gross hematuria. Will leave in place for now though. Will have the nursing staff start flushing catheter qshift. If unable to flush or the catheter becomes clogged, will need to replace corral catheter with a 22Fr 3-way corral. Continue to hold Plavix and ASA while actively bleeding and for cysto with potential TURBT planned for 10-17-16. Continue to monitor H&H. Supportive management with transfusions PRN. Will continue to follow along with primary service at this time. Continued [facility] stay due to: other (gross hematuria)
[2016-10-12 08:24] LABS: BUN/CREATININE RATIO 14.3 (10-20); CREATININE 1.3 mg/dl (0.60-1.40)
[2016-10-12 08:26] LABS: CALCIUM 8.1 mg/dl (8.5-10.1)
--- NOTE | 2016-10-12 09:36 | Clinical Documentation Query ---
CLINICAL DOCUMENTATION QUERY Dr. VALDEZ, In your clinical opinion is this patient being managed for: ( x ) Chronic kidney disease, stage 3 ( ) Other explanation of clinical findings (Please Explain) ( ) Unable to determine (Please Define) ( ) Need to Discuss ( ) Not Agree The medical record reflects the following clinical findings, treatment, and risk factors. Clinical Indicators: 81 yo male presenting with gross hematuria. H&P and Progress notes indicate pt has CKD. Review of historical GFR shows range of 39.3-50.5 over the past 2 years Treatment: monitor PRP's Risk Factors: age, R nephrectomy, HTN, CHF Please clarify and document your clinical opinion in the progress notes and discharge summary. Terms such as "probable", "suspected", "likely", "questionable", "possible", or "still to be ruled out" are acceptable. IF IN AGREEMENT, YOU MUST DOCUMENT ABOVE DIAGNOSTIC STATEMENT IN DAILY PROGRESS NOTES AND DISCHARGE SUMMARY. This document is not part of the patient's record. Thank You, Cecilia Chacko RN [phone]
[2016-10-12] MEDS: SODIUM CHLORIDE 0.9% 1000ML 1,000 ML IV SCH ×2 (09:59→19:44)
[2016-10-12] MEDS: ISOSORBIDE MONONITRATE 60 MG TABCR PO SCH (10:00)
[2016-10-12] MEDS: PANTOprazole SOD 40 MG TAB PO SCH (10:00)
[2016-10-12] MEDS: ATORVASTATIN 20 MG TAB PO SCH (10:00)
[2016-10-12] MEDS: ENALAPRIL MALEATE 10 MG TAB PO SCH (10:00)
[2016-10-12] MEDS: METOPROLOL TARTRATE 50 MG TAB PO SCH ×2 (10:00→21:20)
[2016-10-12] MEDS: AMLODIPINE BESYLATE 5 MG TAB PO SCH (10:01)
--- NOTE | 2016-10-12 15:22 | Progress Note ---
Subjective Date of Service: Oct 12, 2016. Subjective Pt evaluation today including: conversation w/ patient, physical exam, lab review, conversation w/ home planning consultant salesperson, review of inpatient medication list Pain: less pain today after corral placed PO Intake: adequate Voiding: corral catheter in place called last night when patient was shaking with trying to void, clot retention corral placed, [place] colored urine drained overnight, less pain appreciated urology note, ideally he should have triple lumen for irrigation, will try to irrigate with single lumen less blood today, urine clearing up Problem List Medical Problems: (1) Bladder mass Status: Acute (2) Hematuria Status: Acute (3) Platelet inhibition due to Plavix Status: Acute Review of Systems Constitutional: + weakness, + fatigue Male : + hematuria (with clots), + problem reported (less pain today with corral) All Other Systems: Reviewed and Negative Medications Current Inpatient Medications Medications (Trade) Dose Ordered Sig/Jacqui Route Start Time Stop Time Status Last Admin Dose Admin Acetaminophen (Tylenol Tab) 650 mg Q4H PRN PO 10/11/16 03:30 11/10/16 03:29 Polyethylene (Miralax Powder Packet) 17 gm DAILY PRN PO 10/11/16 03:30 11/10/16 03:29 Ondansetron HCl (Zofran Inj) 4 mg Q6H PRN IV 10/11/16 03:30 11/10/16 03:29 Alprazolam (Xanax Tab) 1 mg HS PO 10/11/16 21:00 11/10/16 20:59 10/11/16 21:04 1 MG Amlodipine Besylate (Norvasc Tab) 5 mg DAILY PO 10/11/16 09:00 11/10/16 08:59 10/12/16 10:01 5 MG Atorvastatin Calcium (Lipitor Tab) 10 mg DAILY PO 10/11/16 09:00 11/10/16 08:59 10/12/16 10:00 10 MG Furosemide (Lasix Tab) 20 mg QAM PO 10/11/16 09:00 11/10/16 08:59 Future Hold 10/11/16 08:11 20 MG Isosorbide Mononitrate (Imdur Ext Rel Tab) 60 mg QAM PO 10/11/16 09:00 11/10/16 08:59 10/12/16 10:00 60 MG Levothyroxine Sodium (Synthroid Tab) 50 mcg DAILYBB PO 10/11/16 06:00 11/10/16 06:59 10/12/16 06:00 50 MCG Metoprolol Tartrate (Lopressor Tab) 50 mg BID PO 10/11/16 09:00 11/10/16 08:59 10/12/16 10:00 50 MG Pantoprazole Sodium (Protonix Tab) 40 mg DAILY PO 10/11/16 09:00 11/10/16 08:59 10/12/16 10:00 40 MG Enalapril Maleate (Vasotec Tab) 10 mg QAM PO 10/11/16 09:00 11/10/16 08:59 10/12/16 10:00 10 MG Sodium Chloride 1,000 ml @ 100 mls/hr Q10H IV 10/11/16 04:00 11/10/16 03:59 10/12/16 09:59 100 MLS/HR Ceftriaxone Sodium 1 gm/ Dextrose 50 ml @ 100 mls/hr Q24H IV 10/11/16 04:00 10/21/16 03:59 10/12/16 03:12 100 MLS/HR Tramadol HCl (Ultram Tab) 50 mg Q4H PRN PO 10/11/16 10:15 11/10/16 10:14 10/11/16 18:22 50 MG Lorazepam (Ativan Tab) 0.5 mg Q8H PRN PO 10/11/16 19:00 11/10/16 18:59 10/11/16 19:59 0.5 MG Lidocaine HCl (Xylocaine Jelly 2%) 1 ml DAILY PRN EXT 10/11/16 19:45 11/10/16 19:44 Objective Vital Signs Date Time Temp Pulse Resp B/P (MAP) Pulse Ox O2 Delivery O2 Flow Rate FiO2 10/12/16 08:36 95 Room Air 10/12/16 07:43 36.5 65 12 132/78 (96) 95 Room Air 10/12/16 07:30 Room Air 10/11/16 23:38 Room Air 10/11/16 23:19 36.5 72 16 130/64 (86) 91 Room Air 10/11/16 21:00 73 133/69 (90) 10/11/16 19:30 95 Room Air 10/11/16 15:23 36.7 79 16 122/73 (89) 95 Room Air Physical Exam General Appearance: WD/WN, no apparent distress Neck: supple, no adenopathy, no JVD, trachea midline Respiratory/Chest: chest non-tender, lungs clear, normal breath sounds, no respiratory distress, no accessory muscle use Cardiovascular: regular rate, rhythm, no edema, no gallop, no JVD, no murmur Abdomen: normal bowel sounds, non tender, soft, no organomegaly Extremities: normal range of motion, non-tender, normal inspection, no pedal edema, no calf tenderness Neurologic/Psychiatric: intelligence agent II-XII nml as tested, no motor/sensory deficits, alert, normal mood/affect, oriented x 3 Skin: normal color, warm/dry, no rash Lymphatic: no adenopathy Laboratory Results Last 24 Hours Test 10/12/16 07:25 White Blood Count 7.30 K/uL Red Blood Count 4.51 M/uL Hemoglobin 14.0 g/dL Hematocrit 41.3 % Mean Corpuscular Volume 91.6 fL Mean Corpuscular Hemoglobin 31.0 pg Mean Corpuscular Hemoglobin Concent 33.9 g/dl Platelet Count 185 K/uL Mean Platelet Volume 11.5 fL Neutrophils (%) (Auto) 55.5 % Lymphocytes (%) (Auto) 29.2 % Monocytes (%) (Auto) 10.0 % Eosinophils (%) (Auto) 4.9 % Basophils (%) (Auto) 0.3 % Neutrophils # (Auto) 4.05 K/uL Lymphocytes # (Auto) 2.13 K/uL Monocytes # (Auto) 0.73 K/uL Eosinophils # (Auto) 0.36 K/uL Basophils # (Auto) 0.02 K/uL RDW Standard Deviation 46.3 fL RDW Coefficient of Variation 13.8 % Immature Granulocyte % (Auto) 0.1 % Immature Granulocyte # (Auto) 0.01 K/uL Sodium Level 142 mmol/L Potassium Level 4.0 mmol/L Chloride Level 108 mmol/L Carbon Dioxide Level 24 mmol/L Anion Gap 10.0 mmol/L Blood Urea Nitrogen 19 mg/dl Creatinine 1.30 mg/dl Est Creatinine Clear Calc Drug Dose 50.3 ml/min Estimated GFR () 58.5 Estimated GFR (Non- 50.5 BUN/Creatinine Ratio 14.3 Random Glucose 114 mg/dl Calcium Level 8.1 mg/dl Magnesium Level 2.0 mg/dl Assessment and Plan 81-year-old male with a past medical history of coronary artery disease status post cardiac catheterization, hypertension, status post right nephrectomy for renal cell carcinoma presented to the ER with complaints of persistent hematuria which started about [address] abdomen and pelvis revealed 3.4 cm and intraluminal mass in the right posterior aspect of the urinary bladder which may represent bladder mass versus blood. Jaswinder hematuria with blood clots: Bladder mass versus stone versus blood clot appreciate urology consult, patient needs TURBT, will be done 10/17 as outpatient need to allow Plavix to wash out, last dose 10/11, now discontinued H/H stable and BP stable corral placed, flushing PRN, less bleeding today pinpoint growth on culture, continue empiric Rocephin for 3 doses then stop urine cytology ordered - pending continue IV fluids, Flomax CKD status post right nephrectomy Creatinine at 1.3 which is baseline, no signs of acute renal failure Continue IV fluids, check BMP tomorrow AM Coronary artery disease: Status post cardiac catheterization hold aspirin and Plavix with bleeding and plans for TURBT next week continue Lipitor, ramipril, Lopressor Chronic diastolic heart failure: hold Lasix for now while we hydrate will watch closely for volume overload, pulmonary edema continue Ramipril, Lopressor likely stop fluids tomorrow and resume Lasix Hypertension: - Continue Norvasc and ramipril , Imdur, Lopressor Hypothyroidism: - Continue Synthroid DVT prophylaxis: SCDs Avoid chemical anticoagulation in light of hematuria DO NOT RESUSCITATE Continued [facility] stay due to: other (gross hematuria)
[2016-10-12] MEDS: LORAZEPAM 0.5 MG TAB PO PRN (15:57)
[2016-10-12] MEDS: TRAMADOL HCL 50 MG TAB PO PRN (18:19)
--- NOTE | 2016-10-12 20:25 | Progress Note ---
Progress Note Date of Service Oct 12, 2016. Progress Note Called because nursing staff was unable to successfully place a corral catheter - on arrival, pt noted to have dark red blood dripping from meatus - reports some discomfort - 22F hematuria catheter inserted with aseptic technique - return of clear urine after passage through bladder neck - irrigated to confirm - and irrigant returned easily - input port capped - no CBI necessary at the moment A/P: Hematuria - suspected bladder tumor - on review, he is s/p R nephrectomy - and I suspect this may have been a nephro -ureterectomy. He also reports that Dr. Beltran scraped his bladder on several occasions. - this further increases my suspicion that he harbors a bladder tumor - he has been holding his plavix for 24+ hours. - assuming he remains stable over the weekend, we will plan for TURBT early next week
[2016-10-12] MEDS: ALPRAZOLAM 0.5 MG TAB PO SCH (21:24)
[2016-10-13] MEDS: LORAZEPAM 0.5 MG TAB PO PRN ×2 (01:23→20:16)
[2016-10-13] MEDS: CEFTRIAXONE SOD INJ 1 GM in DEXTROSE 5% ADD-VANTAGE 50ML 50 ML IV SCH (03:39)
[2016-10-13] MEDS: LEVOTHYROXINE 50 MCG TAB PO SCH (05:48)
[2016-10-13] MEDS: SODIUM CHLORIDE 0.9% 1000ML 1,000 ML IV SCH (05:48)
[2016-10-13 07:17] VITALS: BP 150/76; PULSE 69; TEMP 36.9; O2SAT 93
[2016-10-13 07:25] LABS: BASO % 0.1 %; BASO ABS # 0.01 K/uL (0-0.2); COMPLETE YES; EOS % 3.8 %; HEMATOCRIT 36.8 % (42-52); IG% 0.2 %; LYMPH % 22.2 %; LYMPH ABS # 2.26 K/uL (1.2-3.4); MEAN CELL VOLUME 91.1 fL (80-100); MEAN CORPUSCULAR HEMOGLOBIN 30.4 pg (25-34); MEAN CORPUSCULAR HGB CONC 33.4 g/dl (32-36); MEAN PLATELET VOLUME 11.9 fL (7.4-10.4); MONO % 11.2 %; NEUT % 62.5 %; PLATELET COUNT 170 K/uL (130-400); RED BLOOD COUNT 4.04 M/uL (4.7-6.1); WHITE BLOOD COUNT 10.17 K/uL (4.8-10.8)
[2016-10-13] MEDS: ISOSORBIDE MONONITRATE 60 MG TABCR PO SCH (08:18)
[2016-10-13] MEDS: ATORVASTATIN 20 MG TAB PO SCH (08:18)
[2016-10-13] MEDS: METOPROLOL TARTRATE 50 MG TAB PO SCH ×2 (08:19→21:42)
[2016-10-13] MEDS: AMLODIPINE BESYLATE 5 MG TAB PO SCH (08:19)
[2016-10-13] MEDS: ENALAPRIL MALEATE 10 MG TAB PO SCH (08:19)
[2016-10-13] MEDS: PANTOprazole SOD 40 MG TAB PO SCH (08:19)
--- NOTE | 2016-10-13 08:33 | Progress Note ---
Progress Note Date of Service Oct 13, 2016. Progress Note No issues overnight after catheter insertion - urine remains completely clear this AM - subjectively feeling fine Vital Signs Past 12 Hours Date Time Temp Pulse Resp B/P (MAP) Pulse Ox O2 Delivery O2 Flow Rate FiO2 10/13/16 08:10 Room Air 10/13/16 07:17 36.9 69 19 150/76 (100) 93 Room Air 10/13/16 01:34 Room Air 10/12/16 23:10 36.8 66 16 153/81 (105) 95 Room Air 10/12/16 21:17 74 155/81 (105) 10/13/16 06:32 Red Blood Count 4.04, Mean Corpuscular Volume 91.1, Mean Corpuscular Hemoglobin 30.4, Mean Corpuscular Hemoglobin Concent 33.4, Mean Platelet Volume 11.9, Neutrophils (%) (Auto) 62.5, Lymphocytes (%) (Auto) 22.2, Monocytes (%) (Auto) 11.2, Eosinophils (%) (Auto) 3.8, Basophils (%) (Auto) 0.1, Neutrophils # (Auto ) 6.35, Lymphocytes # (Auto) 2.26, Monocytes # (Auto) 1.14, Eosinophils # (Auto ) 0.39, Basophils # (Auto) 0.01 Test 10/13/16 06:32 White Blood Count 10.17 K/uL (4.8-10.8) Red Blood Count 4.04 M/uL (4.7-6.1) Hemoglobin 12.3 g/dL (14.0-18.0) Hematocrit 36.8 % (42-52) Mean Corpuscular Volume 91.1 fL (80-100) Mean Corpuscular Hemoglobin 30.4 pg (25-34) Mean Corpuscular Hemoglobin Concent 33.4 g/dl (32-36) Platelet Count 170 K/uL (130-400) Mean Platelet Volume 11.9 fL (7.4-10.4) Neutrophils (%) (Auto) 62.5 % Lymphocytes (%) (Auto) 22.2 % Monocytes (%) (Auto) 11.2 % Eosinophils (%) (Auto) 3.8 % Basophils (%) (Auto) 0.1 % Neutrophils # (Auto) 6.35 K/uL (1.4-6.5) Lymphocytes # (Auto) 2.26 K/uL (1.2-3.4) Monocytes # (Auto) 1.14 K/uL (0.11-0.59) Eosinophils # (Auto) 0.39 K/uL (0-0.5) Basophils # (Auto) 0.01 K/uL (0-0.2) RDW Standard Deviation 45.4 fL (36.4-46.3) RDW Coefficient of Variation 13.7 % (11.5-14.5) Immature Granulocyte % (Auto) 0.2 % Immature Granulocyte # (Auto) 0.02 K/uL (0.00-0.02) NAD hard of hearing AAOx3 no resp distress RRR abd soft urine clear A/P: Hematuria - resolved - given clear urine and overall stability, I think discharge home is likely very reasonable - I have discussed that he may harbor a bladder tumor - he is off of his plavix right now - I recommend d/c home today with the patient continuing to hold his plavix and likely cystoscopy and TURBT as an outpt early next week - voiding trial prior to d/c home
--- NOTE | 2016-10-13 11:02 | Discharge Instructions ---
Discharge Instructions Date of Service Oct 13, 2016. Admission Reason for Admission: Jaswinder Hematuria Discharge Discharge Diagnosis / Problem: Hematuria, suspected bladder tumor Discharge Goals Goal(s): Diagnostic testing (cystoscopy early next week), Therapeutic intervention (cystoscopy) Activity Recommendations Activity Limitations: resume your previous activity Lifting Limitations: none Exercise/Sports Limitations: as tolerated Shower/Bathe: no limitations . Instructions / Follow-Up Instructions / Follow-Up Medications: - ATIVAN (lorazepam): take as needed for any excess anxiety with urinating, this is what you received in the hospital and it helped DO NOT take more than twice a day, DO NOT take at the same time as your scheduled Xanax - ULTRAM: take as needed for any pain associated with urinating, do not take more than prescribed - PLAVIX and ASPIRIN: do not take these medications... on hold due to bleeding from the bladder and plan for cystoscopy with removal of suspected bladder tumor you had a drug eluting stent in your coronary artery in February 2016 according to outpatient records you will need to resume the aspirin and Plavix as soon as it is okay with Dr. Sharpe it is safe at this point to hold these medications for a short time while you get this procedure which is necessary Hematuria: due to suspected bladder tumor seen on CT scan, you need a cystoscopy with resection of the bladder tumor, early next week Dr. Sharpe's office arranging the timing of procedure, they will contact you/daughter with details you had bladder irrigation and your urine became clear you were able to void after corral removed get rest this , no specific limitations but don't over exert yourself prior to surgery next week Acute kidney injury on CKD: resolved, your kidney numbers returned to baseline with IV fluids FOLLOW UP - Dr. Sharpe early next week for cystoscopy, he said that his office would call with details of date, location and time if you don't hear from them Sunday morning, call [phone] Current Hospital Diet Patient's current hospital diet: Regular Diet Discharge Diet Recommended Diet: AHA Diet (Heart Healthy) Pending Studies Studies pending at discharge: no Laboratory Results Last Resulted CBC 10/13/16 06:32 Red Blood Count 4.04, Mean Corpuscular Volume 91.1, Mean Corpuscular Hemoglobin 30.4, Mean Corpuscular Hemoglobin Concent 33.4, Mean Platelet Volume 11.9, Neutrophils (%) (Auto) 62.5, Lymphocytes (%) (Auto) 22.2, Monocytes (%) (Auto) 11.2, Eosinophils (%) (Auto) 3.8, Basophils (%) (Auto) 0.1, Neutrophils # (Auto ) 6.35, Lymphocytes # (Auto) 2.26, Monocytes # (Auto) 1.14, Eosinophils # (Auto ) 0.39, Basophils # (Auto) 0.01 Last Resulted BMP 10/12/16 07:25 Medical Emergencies . Who to Call and When: Medical Emergencies: If at any time you feel your situation is an emergency, please call 911 immediately. . Non-Emergent Contact Non-Emergency issues call your: Urologist Call Non-Emergent contact if: you have a fever, your pain is worsening if you have further bleeding, likely normal to have some pink urine, but if you have clots, difficulty urinating, you may need to return to hospital . . "Provider Documentation" section prepared by Colby Collins. . VTE Core Measure Inpt VTE Proph given/why not?: SCD's [place] Drug Monitoring Program Search Results: no issues identified
[2016-10-13 15:26] VITALS: BP 115/67; PULSE 71; TEMP 36.5; O2SAT 95
--- NOTE | 2016-10-13 16:00 | Progress Note ---
Subjective Date of Service: Oct 13, 2016. Subjective Pt evaluation today including: conversation w/ patient, conversation w/ family , physical exam, lab review, conversation w/ senior clinical consultant, review of inpatient medication list Pain: only when voiding PO Intake: adequate Voiding: voiding difficulty (straining, painful after corral d/c) patient had catheter d/c today after draining clear urine okay for d/c per urology however, patient with excessive straining, only 200cc out in a shift with pink tinge, no clots patient concerned about discharge discussed with daughter over the phone will keep here overnight to see if his voiding can improve, he lives alone and is concerned about coming back Problem List Medical Problems: (1) Bladder mass Status: Acute (2) Hematuria Status: Acute (3) Platelet inhibition due to Plavix Status: Acute Review of Systems Constitutional: + weakness, + fatigue Male : + dysuria, + urinary frequency, + hematuria All Other Systems: Reviewed and Negative Medications Current Inpatient Medications Medications (Trade) Dose Ordered Sig/Jacqui Route Start Time Stop Time Status Last Admin Dose Admin Acetaminophen (Tylenol Tab) 650 mg Q4H PRN PO 10/11/16 03:30 11/10/16 03:29 Polyethylene (Miralax Powder Packet) 17 gm DAILY PRN PO 10/11/16 03:30 11/10/16 03:29 10/13/16 09:30 17 GM Ondansetron HCl (Zofran Inj) 4 mg Q6H PRN IV 10/11/16 03:30 11/10/16 03:29 Alprazolam (Xanax Tab) 1 mg HS PO 10/11/16 21:00 11/10/16 20:59 10/12/16 21:24 1 MG Amlodipine Besylate (Norvasc Tab) 5 mg DAILY PO 10/11/16 09:00 11/10/16 08:59 10/13/16 08:19 5 MG Atorvastatin Calcium (Lipitor Tab) 10 mg DAILY PO 10/11/16 09:00 11/10/16 08:59 10/13/16 08:18 10 MG Furosemide (Lasix Tab) 20 mg QAM PO 10/11/16 09:00 11/10/16 08:59 Future hold 10/11/16 08:11 20 MG Isosorbide Mononitrate (Imdur Ext Rel Tab) 60 mg QAM PO 10/11/16 09:00 11/10/16 08:59 10/13/16 08:18 60 MG Levothyroxine Sodium (Synthroid Tab) 50 mcg DAILYBB PO 10/11/16 06:00 11/10/16 06:59 10/13/16 05:48 50 MCG Metoprolol Tartrate (Lopressor Tab) 50 mg BID PO 10/11/16 09:00 11/10/16 08:59 10/13/16 08:19 50 MG Pantoprazole Sodium (Protonix Tab) 40 mg DAILY PO 10/11/16 09:00 11/10/16 08:59 10/13/16 08:19 40 MG Enalapril Maleate (Vasotec Tab) 10 mg QAM PO 10/11/16 09:00 11/10/16 08:59 10/13/16 08:19 10 MG Ceftriaxone Sodium 1 gm/ Dextrose 50 ml @ 100 mls/hr Q24H IV 10/11/16 04:00 10/21/16 03:59 10/13/16 03:39 100 MLS/HR Tramadol HCl (Ultram Tab) 50 mg Q4H PRN PO 10/11/16 10:15 11/10/16 10:14 10/12/16 18:19 50 MG Lorazepam (Ativan Tab) 0.5 mg Q8H PRN PO 10/11/16 19:00 11/10/16 18:59 10/13/16 01:23 0.5 MG Lidocaine HCl (Xylocaine Jelly 2%) 1 ml DAILY PRN EXT 10/11/16 19:45 11/10/16 19:44 Objective Vital Signs Date Time Temp Pulse Resp B/P (MAP) Pulse Ox O2 Delivery O2 Flow Rate FiO2 10/13/16 15:26 36.5 71 18 115/67 (83) 95 Room Air 10/13/16 08:10 Room Air 10/13/16 07:17 36.9 69 19 150/76 (100) 93 Room Air 10/13/16 01:34 Room Air 10/12/16 23:10 36.8 66 16 153/81 (105) 95 Room Air 10/12/16 21:17 74 155/81 (105) 10/12/16 19:52 36.7 85 14 122/75 (91) 94 Room Air 10/12/16 19:23 36.8 77 16 166/78 (107) 96 Room Air Physical Exam General Appearance: WD/WN, no apparent distress Eyes: normal inspection, EOMI, sclerae normal ENT: normal ENT inspection, hearing grossly normal, pharynx normal Neck: supple, no adenopathy, no JVD Respiratory/Chest: chest non-tender, lungs clear, normal breath sounds, no respiratory distress, no accessory muscle use Cardiovascular: regular rate, rhythm, no edema, no gallop, no JVD, no murmur Abdomen: normal bowel sounds, non tender, soft, no organomegaly Extremities: normal range of motion, non-tender, normal inspection, no pedal edema, no calf tenderness Neurologic/Psychiatric: assistant softball coach II-XII nml as tested, no motor/sensory deficits, alert, normal mood/affect, oriented x 3 Skin: normal color, warm/dry, no rash Laboratory Results Last 24 Hours Test 10/13/16 06:32 White Blood Count 10.17 K/uL Red Blood Count 4.04 M/uL Hemoglobin 12.3 g/dL Hematocrit 36.8 % Mean Corpuscular Volume 91.1 fL Mean Corpuscular Hemoglobin 30.4 pg Mean Corpuscular Hemoglobin Concent 33.4 g/dl Platelet Count 170 K/uL Mean Platelet Volume 11.9 fL Neutrophils (%) (Auto) 62.5 % Lymphocytes (%) (Auto) 22.2 % Monocytes (%) (Auto) 11.2 % Eosinophils (%) (Auto) 3.8 % Basophils (%) (Auto) 0.1 % Neutrophils # (Auto) 6.35 K/uL Lymphocytes # (Auto) 2.26 K/uL Monocytes # (Auto) 1.14 K/uL Eosinophils # (Auto) 0.39 K/uL Basophils # (Auto) 0.01 K/uL RDW Standard Deviation 45.4 fL RDW Coefficient of Variation 13.7 % Immature Granulocyte % (Auto) 0.2 % Immature Granulocyte # (Auto) 0.02 K/uL Assessment and Plan 81-year-old male with a past medical history of coronary artery disease status post cardiac catheterization, hypertension, status post right nephrectomy for renal cell carcinoma presented to the ER with complaints of persistent hematuria which started about [address] abdomen and pelvis revealed 3.4 cm and intraluminal mass in the right posterior aspect of the urinary bladder which may represent bladder mass versus blood. Jaswinder hematuria with blood clots: Bladder mass versus stone versus blood clot appreciate urology consult, patient needs TURBT, will be done 10/17 as outpatient need to allow Plavix to wash out, last dose 6/14 H/H stable and BP stable three way catheter placed yesterday, irrigated, clear urine this AM corral d/c, tried to void today, 200cc our, pink, no clots, no post void residual urine cytology ordered - pending stop IV fluids, continue Flomax try to d/c home tomorrow CKD status post right nephrectomy Creatinine at 1.3 which is baseline, no signs of acute renal failure stop IV fluids, drinking well Coronary artery disease: Status post cardiac catheterization with SEDRICK to LAD in February 2016 hold aspirin and Plavix with bleeding and plans for TURBT next week continue Lipitor, ramipril, Lopressor will need to resume antiplatelets MAGED once TURBT done Chronic diastolic heart failure: resume Lasix now that IV fluids done continue Ramipril, Lopressor Hypertension: - Continue Norvasc and ramipril , Imdur, Lopressor Hypothyroidism: - Continue Synthroid DVT prophylaxis: SCDs Avoid chemical anticoagulation in light of hematuria DO NOT RESUSCITATE Continued [facility] stay due to: other (gross hematuria)
[2016-10-13] MEDS: TRAMADOL HCL 50 MG TAB PO PRN (20:29)
[2016-10-13 21:40] VITALS: BP 137/81; PULSE 88
[2016-10-13] MEDS: ALPRAZOLAM 0.5 MG TAB PO SCH (21:42)
[2016-10-13 23:17] VITALS: BP 151/66; PULSE 63; TEMP 36.4; O2SAT 95
[2016-10-14] MEDS: LEVOTHYROXINE 50 MCG TAB PO SCH (05:58)
[2016-10-14 06:14] LABS: BASO % 0.3 %; BASO ABS # 0.02 K/uL (0-0.2); COMPLETE YES; EOS % 6.9 %; IG% 0.2 %; LYMPH % 35.1 %; LYMPH ABS # 2.02 K/uL (1.2-3.4); MEAN CELL VOLUME 90.7 fL (80-100); MEAN CORPUSCULAR HEMOGLOBIN 31.3 pg (25-34); MEAN CORPUSCULAR HGB CONC 34.6 g/dl (32-36); MONO % 10.4 %; NEUT % 47.1 %; PLATELET COUNT 155 K/uL (130-400); RED BLOOD COUNT 3.86 M/uL (4.7-6.1); WHITE BLOOD COUNT 5.76 K/uL (4.8-10.8)
--- NOTE | 2016-10-14 07:50 | Progress Note ---
Subjective Date of Service: Oct 14, 2016. Subjective Pt evaluation today including: conversation w/ patient, physical exam, chart review, lab review, review of inpatient medication list Pain: Denies PO Intake: Lis PO Voiding: voiding difficulty (some frequency and hematuria, improved) 81 yo male with gross hematuria and suspected bladder cancer, pending TURBT Oct 17 by our service. He was to be discharged yesterday but had the recurrent passage of some clots and voiding pain. Was contact by nursing staff requesting corral but patient refused placement. Since he has noted improvement in his voiding, feels he is now doing well despite some persistence of hematuria. Also of note was some anxiety yesterday on the patient's behalf about discharge. Past notes reviewed. Problem List Medical Problems: (1) Bladder mass Status: Acute (2) Hematuria Status: Acute (3) Platelet inhibition due to Plavix Status: Acute Review of Systems Constitutional: No fever, No chills Eyes: No worsening of vision ENT: No hearing loss Respiratory: No sputum, No wheezing, No shortness of breath Cardiac: No chest pain Abdomen: No nausea, No vomiting Male : + see HPI, + urinary frequency, + hematuria Neurologic: + memory loss (poor recall per patient), No paralysis Psychiatric: No depression symptoms Heme: + abnormal bleeding/bruising Skin: No new/changing skin lesions, No color change Objective Vital Signs Date Time Temp Pulse Resp B/P (MAP) Pulse Ox O2 Delivery O2 Flow Rate FiO2 10/13/16 23:39 Room Air 10/13/16 23:17 36.4 63 18 151/66 (94) 95 Room Air 10/13/16 21:40 88 137/81 (99) 10/13/16 15:40 Room Air 10/13/16 15:26 36.5 71 18 115/67 (83) 95 Room Air 10/13/16 08:10 Room Air Physical Exam General Appearance: no apparent distress, + obese Eyes: normal inspection ENT: normal ENT inspection, hearing grossly normal Neck: supple, no adenopathy Respiratory/Chest: no respiratory distress, no accessory muscle use Cardiovascular: no JVD Abdomen: non tender, soft Neurologic/Psychiatric: alert Skin: normal color Laboratory Results Last 24 Hours Test 10/14/16 05:49 White Blood Count 5.76 K/uL Red Blood Count 3.86 M/uL Hemoglobin 12.1 g/dL Hematocrit 35.0 % Mean Corpuscular Volume 90.7 fL Mean Corpuscular Hemoglobin 31.3 pg Mean Corpuscular Hemoglobin Concent 34.6 g/dl Platelet Count 155 K/uL Mean Platelet Volume 12.0 fL Neutrophils (%) (Auto) 47.1 % Lymphocytes (%) (Auto) 35.1 % Monocytes (%) (Auto) 10.4 % Eosinophils (%) (Auto) 6.9 % Basophils (%) (Auto) 0.3 % Neutrophils # (Auto) 2.71 K/uL Lymphocytes # (Auto) 2.02 K/uL Monocytes # (Auto) 0.60 K/uL Eosinophils # (Auto) 0.40 K/uL Basophils # (Auto) 0.02 K/uL RDW Standard Deviation 44.9 fL RDW Coefficient of Variation 13.7 % Immature Granulocyte % (Auto) 0.2 % Immature Granulocyte # (Auto) 0.01 K/uL Assessment and Plan A/P 81 yo male with fluctuating hematuria, bladder mass. Findings and care d/w patient. 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 The worrisome finding would be symptoms of anemia or clot retention, currently does not appear to be the case. TUR has been timed to allow for antiplatelet meds to clear and provide acceptable bleeding risk at the time of surgery. Technique and surgical goals reviewed. Should be stable for DC home from a perspective with outpatient follow-up as planned. Outpatient visit timing reviewed. He can always contact our office with any questions regarding the logistics of his care. Thank you for allowing us to participate in this patient's care. Please recall our service with any questions or concerns. Continued [facility] stay due to: other (gross hematuria) Discharge planning: home
[2016-10-14 08:07] VITALS: BP 132/68; PULSE 61; TEMP 36.9; O2SAT 91
[2016-10-14 08:46] VITALS: O2SAT 91
[2016-10-14] MEDS: FUROSEMIDE 20 MG TAB PO SCH (09:00)
[2016-10-14] MEDS: ISOSORBIDE MONONITRATE 60 MG TABCR PO SCH (09:09)
[2016-10-14] MEDS: METOPROLOL TARTRATE 50 MG TAB PO SCH (09:11)
[2016-10-14] MEDS: AMLODIPINE BESYLATE 5 MG TAB PO SCH (09:11)
[2016-10-14] MEDS: PANTOprazole SOD 40 MG TAB PO SCH (09:11)
[2016-10-14] MEDS: ATORVASTATIN 20 MG TAB PO SCH (09:11)
[2016-10-14] MEDS: ENALAPRIL MALEATE 10 MG TAB PO SCH (09:11)
[2016-10-14 09:12] VITALS: BP 155/80; PULSE 69
[2016-10-14] MEDS ORDERED: ATV5 PO (10:55)
[2016-10-14] MEDS ORDERED: ULT50X PO (10:55)
[2016-10-14 11:03] VITALS: BP 155/80; PULSE 69; TEMP 36.9; O2SAT 91
--- NOTE | 2016-10-14 14:00 | Discharge Summary ---
Discharge Summary Date of Service Oct 14, 2016. Discharge Summary Admission Date: Oct 11, 2016 at 03:24 Discharge Date: Oct 14, 2016 Discharge Disposition: Home Principal Diagnosis: Hematuria from suspected bladder tumor Problems/Secondary Diagnoses: Anemia CAD Anxiety Immunizations: Have You Had Influenza Vaccine: Yes Influenza Vaccine Date: Feb 20, 2013 History of Tetanus Vaccine?: Yes Tetanus Immunization Date: May 23, 2008 History of Pneumococcal: Yes Pneumococcal Date: May 23, 2010 History of Hepatitis B Vaccine: No Procedures: none Consultations: Urology Medication Reconciliation New Medications: Lorazepam (Lorazepam) 0.5 Mg Tab 0.5 MG PO Q12 PRN for Anxiety, #10 TAB 0 Refills Tramadol HCl (Tramadol HCl) 50 Mg Tab 50 MG PO Q4H PRN for Pain, #20 TAB 0 Refills Continued Medications: Alprazolam (Xanax) 1 Mg Tab 1 MG PO HS, TAB Amlodipine Besylate (Norvasc) 5 Mg Tab 5 MG PO DAILY, TAB Atorvastatin (Lipitor) 20 Mg Tab 10 MG PO DAILY, TAB Ergocalciferol (Vitamin D 72051 Unit) 50,000 Unit Cap 78055 UNIT PO WK wednesdays Furosemide (Lasix) 20 Mg Tab 20 MG PO QAM, #30 TAB Isosorbide Mononitrate (Imdur Ext Rel) 60 Mg Tab 60 MG PO QAM, TAB Levothyroxine Sodium (Synthroid) 50 Mcg Tab 50 MCG PO DAILY, TAB Metoprolol Tartrate (Lopressor) 50 Mg Tab 50 MG PO BID, TAB Omeprazole (Prilosec) 40 Mg Cap 40 MG PO DAILY, CAP Ramipril (Ramipril) 2.5 Mg Cap 1 CAP PO DAILY for 90 Days, #90 CAP 3 Refills Discontinued Medications: Aspirin (Aspir-81) 81 Mg Tab 81 MG PO DAILY Clopidogrel (Plavix) 75 Mg Tab 75 MG PO DAILY, TAB Discharge Exam Patient feeling well this AM, cleared for d/c by Dr. Samuel. Had some difficulty voiding but was able to empty bladder completely had some increased anxiety, Ativan really helped calm him down, requested a small prescription plan for TURBT on Sunday Review of Systems: Constitutional: No fever, No chills, No sweats, No weight loss, No weakness , No fatigue, No problem reported Eyes: No worsening of vision, No eye pain, No redness, No discharge, No diplopia, No problem reported Respiratory: No cough, No sputum, No wheezing, No shortness of breath, No dyspnea on exertion, No dyspnea at rest, No hemoptysis, No problem reported Cardiovascular: No chest pain, No orthopnea, No PND, No edema, No claudication, No palpitations, No problem reported Abdomen: No pain, No nausea, No vomiting, No diarrhea, No constipation, No GI bleeding, No problem reported Musculoskeletal: No joint pain, No muscle pain, No swelling, No calf pain, No problem reported Genitourinary - Male: + hematuria, + dysuria, + urinary frequency, + urinary urgency, + penile discharge (some blood), No urinary hesitancy, No urinary retention, No urinary incontinence Neurologic: No memory loss, No paralysis, No weakness, No numbness/tingling , No vertigo, No balance problems, No problem reported Psychiatric: + anxiety, No depression symptoms, No anhedonism, No insomnia, No substance abuse, No problem reported Endocrine: No fatigue, No excessive thirst, No excessive urination, No problem reported Hematologic / Lymphatic: No abnormal bleeding/bruising, No clotting problems , No swollen lymph nodes, No night sweats, No problem reported Integumentary: No rash, No itch, No new/changing skin lesions, No color change, No bleeding, No problem reported Physical Exam: General Appearance: WD/WN, no apparent distress Eyes: normal inspection, EOMI, sclerae normal ENT: normal ENT inspection, hearing grossly normal, pharynx normal Neck: supple, no adenopathy, no JVD, trachea midline Respiratory/Chest: chest non-tender, lungs clear, normal breath sounds, no respiratory distress, no accessory muscle use Cardiovascular: regular rate, rhythm, no edema, no gallop, no JVD, no murmur , normal peripheral pulses Abdomen / GI: normal bowel sounds, non tender, soft, no organomegaly Extremities: normal inspection, no calf tenderness, normal capillary refill , no pedal edema, normal range of motion, pelvis stable 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 abdomen and pelvis revealed 3.4 cm and intraluminal mass in the right posterior aspect of the urinary bladder which may represent bladder mass versus blood. Jaswinder hematuria with blood clots: Bladder mass versus stone versus blood clot appreciate urology consult, patient needs TURBT, will be done 10/17 as outpatient need to allow Plavix to wash out, last dose 10/11 H/H stable and BP stable three way catheter placed 10/12, irrigated, clear urine the morning of 10/13 corral d/c, difficulty voiding yesterday, pink with no real clots lots of anxiety, Ativan 0.5mg PO helped voiding better this AM, feels ready for d/c, cleared by urology to go home urine cytology ordered - pending d/c off of Plavix and Aspirin provided scripts for Ultram and Ativan as needed for pain/anxiety will report for TURBT on Tuesday 10/17, provided with office number for urology CKD stage III status post right nephrectomy Creatinine at 1.3 which is baseline, no signs of acute renal failure no further IV fluids, drinking well Coronary artery disease: Status post cardiac catheterization with SEDRICK to LAD in February 2016 hold aspirin and Plavix with bleeding and plans for TURBT next week continue Lipitor, ramipril, Lopressor will need to resume antiplatelets MAGED once TURBT done Chronic diastolic heart failure: resumed Lasix now that IV fluids done continue Ramipril, Lopressor Hypertension: - Continue Norvasc and ramipril , Imdur, Lopressor Hypothyroidism: - Continue Synthroid DVT prophylaxis: SCDs Avoid chemical anticoagulation in light of hematuria DO NOT RESUSCITATE Total Time Spent: Greater than 30 minutes This includes examination of the patient, discharge planning, medication reconciliation, and communication with other providers. Discharge Instructions Please refer to the electronic Patient Visit Report (Discharge Instructions) for additional information. Follow-Up Dr. Sharpe on Sunday PCP after TURBT Additional Copies To Dora Mcmahon PA-C; Tony Sharpe M.D.
[2016-10-16] MEDS ORDERED: ASPI81TA28 PO (10:24)
[2016-10-16] MEDS ORDERED: LEVO25TA PO (10:24)
[2016-10-16] MEDS ORDERED: MELATAB2 PO (10:24)
[2016-10-16] MEDS ORDERED: NTRGSL/4 UT (10:25)
[2016-10-16] MEDS ORDERED: CLOP1TAB15 PO (10:25)
[2016-10-16] MEDS ORDERED: RANO500T PO (10:28)
[2016-10-16] MEDS ORDERED: CHOL2000 PO (10:28)
== END 2016-10-14 13:30 | disposition home or self-care (01) | DRG 699 ==
LOC: C.EDB 22:56 → C.MSW 10-11 03:24 → ENRESERV 10-11 03:33
PROVIDERS: ADMIT Family Medicine; ATTEND Internal Medicine
DX: N32.9 Bladder disorder, unspecified (principal); I50.32 Chronic diastolic (congestive) heart failure; I13.0 Hypertensive heart and chronic kidney disease with heart failure and stage 1 through stage 4 chronic kidney disease, or unspecified chronic kidney disease; R31.9 Hematuria, unspecified; N18.3 Chronic kidney disease, stage 3 (moderate); I25.10 Atherosclerotic heart disease of native coronary artery without angina pectoris; E03.9 Hypothyroidism, unspecified; Z66 Do not resuscitate; Z79.02 Long term (current) use of antithrombotics/antiplatelets; Z79.82 Long term (current) use of aspirin; Z79.899 Other long term (current) drug therapy; Z90.5 Acquired absence of kidney

== ENCOUNTER 2016-10-17 11:39 | Observation (INO) | payer OTHER ==
[2016-10-16 08:24] VITALS: BMI 29.0
--- NOTE | 2016-10-16 11:01 | PAT Medication Instructions ---
Service Date Oct 16, 2016. Current Home Medication List Alprazolam (Xanax), 1 MG PO HS PRN for Sleep Amlodipine Besylate (Norvasc), 5 MG PO DAILY Aspirin (Aspirin Ec), 81 MG PO DAILY Atorvastatin (Lipitor), 10 MG PO DAILY Cholecalciferol (Vitamin D3), 1 CAP PO DAILY Clopidogrel (Plavix), 75 MG PO DAILY Furosemide (Lasix), 20 MG PO QAM Isosorbide Mononitrate (Imdur Ext Rel), 60 MG PO QAM Levothyroxine Sodium (Synthroid), 25 MCG PO DAILY Melatonin (Melatonin Maximum Strengt), 1 TAB PO HS Metoprolol Tartrate (Lopressor), 50 MG PO BID Nitroglycerin (Nitrostat), 0.4 MG UT PRN PRN for chest pain Omeprazole (Prilosec), 40 MG PO DAILY Ramipril (Ramipril), 1 CAP PO DAILY Ranolazine (Ranexa), 1 TAB PO BID Medication Instructions For Your Scheduled Surgery - Check with insurance collector and surgeon for instructions: Clopidogrel (Plavix), 75 MG PO DAILY Aspirin (Aspirin Ec), 81 MG PO DAILY - Hold the following medications the morning of surgery: Ramipril (Ramipril), 1 CAP PO DAILY Furosemide (Lasix), 20 MG PO QAM Cholecalciferol (Vitamin D3), 1 CAP PO DAILY - Take the following medications the morning of surgery with a sip of water: Ranolazine (Ranexa), 1 TAB PO BID Omeprazole (Prilosec), 40 MG PO DAILY Nitroglycerin (Nitrostat), 0.4 MG UT PRN PRN for chest pain (if needed) Metoprolol Tartrate (Lopressor), 50 MG PO BID Levothyroxine Sodium (Synthroid), 25 MCG PO DAILY Isosorbide Mononitrate (Imdur Ext Rel), 60 MG PO QAM Atorvastatin (Lipitor), 10 MG PO DAILY Amlodipine Besylate (Norvasc), 5 MG PO DAILY - Take the following medications as scheduled the night before surgery: Ranolazine (Ranexa), 1 TAB PO BID Nitroglycerin (Nitrostat), 0.4 MG UT PRN PRN for chest pain (if needed) Metoprolol Tartrate (Lopressor), 50 MG PO BID Melatonin (Melatonin Maximum Strengt), 1 TAB PO HS Alprazolam (Xanax), 1 MG PO HS PRN for Sleep (if needed) If you have any questions please call us at [phone] or [phone] or [phone]
[2016-10-17] VITALS (8 sets, daily range): BP systolic 128–155; BP diastolic 72–78; PULSE 56–64; TEMP 36.3–36.8; O2SAT 92–96; Ht 177.8 cm; Wt 93.6 kg
[~2016-10-17] VITALS: Ht 177.8 cm; Wt 93.6 kg
[~2016-10-17 11:39] MED LIST changes: -ASPI-232 PO; +ASPI81TA28 PO; +ATROPINE SULFATE 0.1 MG/ML 5ML SYR IV PRN; +CHOL2000 PO; +CIPROFLOXACIN / D5W 400 MG IV SCH; +CLOP1TAB15 PO; +DEXAMETHASONE SOD INJ 4 MG/ML VIAL ONE; +EpHEDrine SULFATE INJ 50 MG/ML AMP IV PRN; +FENTANYL CITRATE INJ 50 MCG/1 ML 2 ML VIAL IV PRN; +FENTANYL CITRATE INJ 50 MCG/1 ML 2 ML VIAL ONE; +HYDROmorphone INJ 1 MG/ML SYR IV PRN; +LACTATED RINGER'S 1000ML 1,000 ML IV SCH; +LEVO25TA PO; -LEVO50TA PO; +LIDOCAINE HCL 2% 2 ML VIAL (20MG/ML) ONE; +MELATAB2 PO; +MIDAZOLAM HCL 1 MG/ML 2ML VIAL ONE; +NTRGSL/4 UT; +OMEP40CA41 PO; +ONDANSETRON INJ 2 MG/ML 2 ML VIAL IV PRN; +ONDANSETRON INJ 2 MG/ML 2 ML VIAL ONE; -PANT1TAB48 PO; +PROPOFOL IV EMULSION 10 MG/ML 20 ML VIAL IV ONE; +RAMI2.5C PO
--- NOTE | 2016-10-17 11:40 | History and Physical ---
History & Physical Date Oct 17, 2016. History of Present Illness The patient is a 81 year old male with complaints of gross hematuria. Hx of bladder ca - no recent cystoscopy. Admitted as an inpt last week. Plavix held and urine cleared. Now presenting for formal evaluation with cystoscopy and possible TURBT Past Medical/Surgical History Medical Problems: (1) Jaswinder hematuria (2) Heart catheterization (3) Heart disease (4) HTN (hypertension) (5) Kidney disease (6) Right pyelonephrotomy Surgical Problems: (1) H/O hernia repair (2) History of heart valve replacement Additional History Hepatic Disease: No Endocrine Disorder: No Kidney Disease: No Hypertension: Yes Heart Disease: Yes Bleeding Tendencies: Yes Infectious Diseases: No Allergies Coded Allergies: No Known Allergies (Unverified , 10/10/16) Home Medications Scheduled Amlodipine Besylate (Norvasc), 5 MG PO DAILY Aspirin (Aspirin Ec), 81 MG PO DAILY Atorvastatin (Lipitor), 10 MG PO DAILY Cholecalciferol (Vitamin D3), 1 CAP PO DAILY Clopidogrel (Plavix), 75 MG PO DAILY Furosemide (Lasix), 20 MG PO QAM Isosorbide Mononitrate (Imdur Ext Rel), 60 MG PO QAM Levothyroxine Sodium (Synthroid), 25 MCG PO DAILY Melatonin (Melatonin Maximum Strengt), 1 TAB PO HS Metoprolol Tartrate (Lopressor), 50 MG PO BID Omeprazole (Prilosec), 40 MG PO DAILY Ramipril (Ramipril), 1 CAP PO DAILY Ranolazine (Ranexa), 1 TAB PO BID Scheduled PRN Alprazolam (Xanax), 1 MG PO HS PRN for Sleep Nitroglycerin (Nitrostat), 0.4 MG UT PRN PRN for chest pain Physical Examination Skin: warm/dry Eyes: normal inspection ENT: normal ENT inspection Head: normocephalic Neck: supple Respiratory/Chest: lungs clear Cardiovascular: regular rate, rhythm Abdomen / GI: normal bowel sounds Back: normal inspection Extremities: normal inspection Neurologic/Psych: no motor/sensory deficits Diagnosis Hematuria; hx of bladder ca Plan of Treatment cystoscopy; possible TURBT (transurethral resection of bladder tumor)
[2016-10-17] MEDS ORDERED: ERGO500037 PO (12:38)
[2016-10-17] MEDS ORDERED: TRAM-10 PO (12:38)
[2016-10-17] MEDS ORDERED: lorazepam PO (12:38)
--- NOTE | 2016-10-17 13:53 | [facility] Post Operative Brief Note ---
Immediate Operative Summary Operative Date Oct 17, 2016. Pre-Operative Diagnosis Hematuria; hx of bladder ca Post-Operative Diagnosis Hematuria; hx of bladder ca; significant prostate regrowth with bleeding Procedure(s) Performed Cystoscopy; Transurethral Resection of Prostate Surgeon Dr. Sharpe [employer] Manager Surgeon(s) none Estimated Blood Loss 5cc Findings No evidence of recurrent bladder tumor. He has, however, had significant regrowth of his prostate. Numerous prominent vessels within the prostate. These appear to be the most likely cause of his prior bleeding. He additionally was noted to have a healing false passage in the bulbar urethra. Specimens none per surgeon Drains 22F corral Anesthesia Gen Complication(s) None Disposition Recovery Room / PACU (stable)
[2016-10-17] MEDS ORDERED: ONDANSETRON INJ 2 MG/ML 2 ML VIAL IV PRN (14:00)
[2016-10-17] MEDS ORDERED: NITROGLYCERIN 0.4 MG SL PER TAB CHARGE UT PRN (14:00)
[2016-10-17] MEDS ORDERED: LORAZEPAM 0.5 MG TAB PO PRN (14:00)
[2016-10-17] MEDS ORDERED: ALPRAZOLAM 0.5 MG TAB PO PRN (14:00)
[2016-10-17] MEDS ORDERED: IV FLUIDS COMPLETED PRN (14:00)
[2016-10-17] MEDS ORDERED: ACETAMINOPHEN 325 MG TAB PO PRN (14:00)
--- NOTE | 2016-10-17 14:00 | Discharge Instructions ---
Discharge Instructions Date of Service Oct 17, 2016. Admission Reason for Admission: Hematuria Discharge Discharge Diagnosis / Problem: Hematuria; BPH Discharge Goals Goal(s): Decrease discomfort, Improve function, Increase independence, Improve disease control, Prevent Disease Progression Activity Recommendations Activity Limitations: resume your previous activity Lifting Limitations: gradually increase as tolerated, until after follow-up appointment Exercise/Sports Limitations: gradually increase as tolerated May Resume Sexual Activity: when tolerated Shower/Bathe: no limitations Driving or Machine Use: resume 1 day after discharge . Instructions / Follow-Up Instructions / Follow-Up Please keep your previously scheduled follow up appointment with Dr. Sharpe. Please resume your aspirin tomorrow (). If your urine stays pink or clear, please resume your plavix on Sunday morning. Current Hospital Diet Hospital Diet(s): Regular Diet Discharge Diet Recommended Diet: Regular Diet Procedures Procedures Performed: Cystoscopy; Transurethral Resection of Prostate Pending Studies Studies pending at discharge: no Medical Emergencies . Who to Call and When: Medical Emergencies: If at any time you feel your situation is an emergency, please call 911 immediately. . Non-Emergent Contact Non-Emergency issues call your: Urologist Call Non-Emergent contact if: you have a fever, temperature is above 101.5, your pain is not controlled, your pain is worsening . . "Provider Documentation" section prepared by Vidal Neville. . VTE Core Measure Inpt VTE Proph given/why not?: Other Anticoagulation
[2016-10-17] MEDS ORDERED: FENTANYL CITRATE INJ 50 MCG/1 ML 2 ML VIAL ONE (14:05)
--- NOTE | 2016-10-17 14:39 | Anesthesiology Progress Note ---
Anesthesia Post Op Note Date & Time Oct 17, 2016 at 14:38 Vital Signs Pain Intensity: 5 Vital Signs Past 12 Hours Date Time Temp Pulse Resp B/P (MAP) Pulse Ox O2 Delivery O2 Flow Rate FiO2 10/17/16 14:24 60 16 10/17/16 14:24 61 16 94 10/17/16 14:20 125/61 10/17/16 14:19 62 16 10/17/16 14:19 61 16 95 10/17/16 14:15 133/66 10/17/16 14:14 61 15 97 10/17/16 14:14 61 15 10/17/16 14:10 131/70 10/17/16 14:09 64 17 10/17/16 14:09 64 17 98 10/17/16 14:05 134/68 10/17/16 14:04 64 15 10/17/16 14:04 63 15 98 10/17/16 14:00 134/66 10/17/16 13:59 36.2 60 16 134/66 96 Mask 10 10/17/16 13:59 62 14 10/17/16 13:59 68 14 96 10/17/16 12:09 36.8 64 18 155/76 (102) 94 Room Air 10/17/16 12:07 36.8 64 18 155/76 (102) 94 Room Air Notes Mental Status: alert / awake / arousable, participated in evaluation Pt Amnestic to Procedure: Yes Nausea / Vomiting: adequately controlled Pain: adequately controlled Airway Patency, RR, SpO2: stable & adequate BP & HR: stable & adequate Hydration State: stable & adequate Anesthetic Complications: no major complications apparent
[2016-10-17 14:47] LABS: BASO % 0.2 %; BASO ABS # 0.01 K/uL (0-0.2); EOS % 5.5 %; HEMATOCRIT 38.3 % (42-52); IG% 0.3 %; LYMPH ABS # 2.25 K/uL (1.2-3.4); MEAN CELL VOLUME 90.8 fL (80-100); MEAN CORPUSCULAR HEMOGLOBIN 29.6 pg (25-34); MEAN PLATELET VOLUME 11.4 fL (7.4-10.4); PLATELET COUNT 228 K/uL (130-400); RED BLOOD COUNT 4.22 M/uL (4.7-6.1); WHITE BLOOD COUNT 6.42 K/uL (4.8-10.8)
[2016-10-17 14:57] LABS: COMPLETE YES; MEAN CORPUSCULAR HGB CONC 32.6 g/dl (32-36)
[2016-10-17 15:13] LABS: BUN/CREATININE RATIO 14.3 (10-20); CALCIUM 8.5 mg/dl (8.5-10.1); CREATININE 1.4 mg/dl (0.60-1.40); POTASSIUM 4.1 mmol/L (3.5-5.1)
[2016-10-17] MEDS ORDERED: FUROSEMIDE 20 MG TAB PO ONE (16:30)
[2016-10-17] MEDS ORDERED: LACTATED RINGER'S 1000ML 1,000 ML IV SCH (16:30)
[2016-10-17] MEDS: ENALAPRIL MALEATE 10 MG TAB PO SCH (17:36)
[2016-10-17] MEDS: TRAMADOL HCL 50 MG TAB PO PRN ×2 (17:37→21:42)
[2016-10-17] MEDS ORDERED: ATORVASTATIN 20 MG TAB PO SCH (21:00)
[2016-10-17] MEDS: METOPROLOL TARTRATE 50 MG TAB PO SCH (21:43)
[2016-10-17] MEDS: CIPROFLOXACIN / D5W 400 MG in PREMIXED IN D5W 200 ML IV SCH (21:43)
--- NOTE | 2016-10-17 22:27 | OPERATIVE REPORT ---
DATE OF OPERATION: 10/17/2016 PREOPERATIVE DIAGNOSIS: Hematuria. POSTOPERATIVE DIAGNOSES: Hematuria, prostate regrowth. PROCEDURE PERFORMED: Cystoscopy, transurethral resection of prostate. ANESTHESIA: General. ESTIMATED BLOOD LOSS: 5 mL URINE OUTPUT: Not recorded. SPECIMENS: No specimens. COMPLICATIONS: No complications. DRAINS: A 22-Chadian Dunham catheter. DESCRIPTION OF THE PROCEDURE: Bryan Batres was identified in the preoperative holding area. Appropriate informed consents reviewed and completed, and the patient was transported to the operating suite. Upon arrival, he received appropriate preoperative antibiotics in the form of ciprofloxacin. Adequate general anesthesia was achieved and the patient was placed in dorsal lithotomy position where he was sterilely prepped and draped in standard fashion. I began the case by passing a 22-Chadian cystoscope with 30-degree lens. Inspection of the urethra revealed what appeared to be a false passage in the bulbar urethra; however, this was appeared to be somewhat flattened out and I was able to easily navigate beyond this through the true urethra and into the bladder. His prostate was immediately noted to have significant prostate regrowth from the lateral lobes. He noted preoperatively that he has had remote history of a TURP in the past; however, the regrowth is impressive, occluding the urethra significantly. Inspection of the bladder revealed no active hematuria. Full inspection was carried out with 30- and 70-degree lenses which revealed some mild erythema on the back wall consistent with catheter-related cystitis secondary to his recent catheterization and hospitalization. There was not, however, any evidence of any tumor recurrence. His right ureteral orifice appeared to be scarred appropriately after a nephroureterectomy with no evidence of recurrent tumor in this location. His left ureteral orifice was patent with clear efflux. There were no papillary tumors appreciated. Following this full inspection, I performed further inspection of the prostate which revealed numerous prominent vessels across this prostate regrowth. With subsequent abnormal contour of the prostate secondary to the regrowth, I suspected that his bleeding was occurring secondary to the prostate itself. Before proceeding further, I broke scrub and exited the operating room to go to speak with his daughter. I spoke with his daughter about my findings and my suspicion that his bleeding came from the prostate as well as the patient's chronic urinary troubles secondary to this. We discussed options of concluding the case today versus performing a resection/vaporization of the prostate to prevent further bleeding or urinary symptoms, and she was quite adamant that she wanted to proceed with resection for treatment of the prostate. I proceeded by using a button electrode to vaporize this regrowth of the prostate. I began at the left lateral lobe, followed by the right lateral lobe. It immediately flattened out nicely and opened the prostatic urethra appropriately. There was excellent hemostasis throughout the entire resection. At the conclusion of the resection, I again ensured excellent hemostasis secondary to the patient's chronic aspirin and Plavix use before leaving the bladder full. I withdrew the scope and placed a 22-Chadian catheter without difficulty. The patient was subsequently extubated and taken to the PACU in stable condition. I attest to the content of the Intraoperative Record and any orders documented therein. Any exceptions are noted below. KARINA
[2016-10-18 00:05] VITALS: O2SAT 93
[2016-10-18 03:15] VITALS: BP 150/73; PULSE 61; TEMP 36.7; O2SAT 96
[2016-10-18] MEDS ORDERED: LEVOTHYROXINE 50 MCG TAB PO SCH (06:00)
[2016-10-18 07:27] VITALS: BP 152/65; PULSE 76; TEMP 36.7; O2SAT 95
[2016-10-18 07:35] LABS: BASO % 0.1 %; BASO ABS # 0.01 K/uL (0-0.2); COMPLETE YES; HEMATOCRIT 37.8 % (42-52); IG% 0.2 %; LYMPH % 22.3 %; LYMPH ABS # 1.88 K/uL (1.2-3.4); MEAN CELL VOLUME 90.6 fL (80-100); MEAN CORPUSCULAR HEMOGLOBIN 31.2 pg (25-34); MEAN CORPUSCULAR HGB CONC 34.4 g/dl (32-36); MEAN PLATELET VOLUME 11.3 fL (7.4-10.4); MONO % 9.8 %; NEUT % 63.6 %; PLATELET COUNT 199 K/uL (130-400); RED BLOOD COUNT 4.17 M/uL (4.7-6.1); WHITE BLOOD COUNT 8.44 K/uL (4.8-10.8)
--- NOTE | 2016-10-18 07:51 | Progress Note ---
Progress Note Date of Service Oct 18, 2016. Progress Note Doing very well. No issues overnight aside from minor catheter related discomfort. 10/18/16 07:25 Red Blood Count 4.17, Mean Corpuscular Volume 90.6, Mean Corpuscular Hemoglobin 31.2, Mean Corpuscular Hemoglobin Concent 34.4, Mean Platelet Volume 11.3, Neutrophils (%) (Auto) 63.6, Lymphocytes (%) (Auto) 22.3, Monocytes (%) (Auto) 9.8, Eosinophils (%) (Auto) 4.0, Basophils (%) (Auto) 0.1, Neutrophils # (Auto) 5.36, Lymphocytes # (Auto) 1.88, Monocytes # (Auto) 0.83, Eosinophils # (Auto) 0.34, Basophils # (Auto) 0.01 Test 10/17/16 14:07 10/17/16 14:40 10/18/16 07:25 Bedside Glucose 138 mg/dl (70-99) Est Creatinine Clear Calc Drug Dose 45.9 ml/min White Blood Count 8.44 K/uL (4.8-10.8) Red Blood Count 4.17 M/uL (4.7-6.1) Hemoglobin 13.0 g/dL (14.0-18.0) Hematocrit 37.8 % (42-52) Mean Corpuscular Volume 90.6 fL (80-100) Mean Corpuscular Hemoglobin 31.2 pg (25-34) Mean Corpuscular Hemoglobin Concent 34.4 g/dl (32-36) Platelet Count 199 K/uL (130-400) Mean Platelet Volume 11.3 fL (7.4-10.4) Neutrophils (%) (Auto) 63.6 % Lymphocytes (%) (Auto) 22.3 % Monocytes (%) (Auto) 9.8 % Eosinophils (%) (Auto) 4.0 % Basophils (%) (Auto) 0.1 % Neutrophils # (Auto) 5.36 K/uL (1.4-6.5) Lymphocytes # (Auto) 1.88 K/uL (1.2-3.4) Monocytes # (Auto) 0.83 K/uL (0.11-0.59) Eosinophils # (Auto) 0.34 K/uL (0-0.5) Basophils # (Auto) 0.01 K/uL (0-0.2) RDW Standard Deviation 44.6 fL (36.4-46.3) RDW Coefficient of Variation 13.5 % (11.5-14.5) Immature Granulocyte % (Auto) 0.2 % Immature Granulocyte # (Auto) 0.02 K/uL (0.00-0.02) Vital Signs Past 12 Hours Date Time Temp Pulse Resp B/P (MAP) Pulse Ox O2 Delivery O2 Flow Rate FiO2 10/18/16 07:27 36.7 76 18 152/65 (94) 95 Room Air 10/18/16 03:15 36.7 61 16 150/73 (98) 96 Room Air 10/18/16 00:05 93 Room Air 10/17/16 23:50 Room Air 10/17/16 23:45 36.4 57 16 147/78 (101) 93 Nasal Cannula 2.0 NAD aaox3 no resp distress abd soft urine clear (corral) A/p: POD #1 s/p TURP - voiding trial now - d/c home if all goes well
[2016-10-18 08:03] LABS: BUN/CREATININE RATIO 11.6 (10-20); CREATININE 1.4 mg/dl (0.60-1.40); POTASSIUM 3.7 mmol/L (3.5-5.1)
[2016-10-18 08:05] LABS: CALCIUM 8.7 mg/dl (8.5-10.1)
[2016-10-18] MEDS: CIPROFLOXACIN / D5W 400 MG in PREMIXED IN D5W 200 ML IV SCH (08:35)
[2016-10-18] MEDS: METOPROLOL TARTRATE 50 MG TAB PO SCH (08:37)
[2016-10-18] MEDS: ENALAPRIL MALEATE 10 MG TAB PO SCH (08:38)
[2016-10-18] MEDS ORDERED: FUROSEMIDE 20 MG TAB PO SCH (09:00)
[2016-10-18] MEDS ORDERED: ISOSORBIDE MONONITRATE 60 MG TABCR PO SCH (09:00)
[2016-10-18] MEDS ORDERED: PANTOprazole SOD 40 MG TAB PO SCH (09:00)
[2016-10-18] MEDS ORDERED: AMLODIPINE BESYLATE 5 MG TAB PO SCH (09:00)
[2016-10-18] MEDS ORDERED: ASPIRIN 81 MG ECTAB PO SCH (09:00)
[2016-10-18 11:11] VITALS: BP 152/65; PULSE 76; TEMP 36.7; O2SAT 95
--- NOTE | 2016-10-18 11:18 | Anesthesiology Progress Note ---
Anesthesia Progress Note Date of Service Oct 18, 2016. Progress Notes I have been called to see this patient with the c/o sore throat and difficulty swallowing.This gentleman had undergone a cystoscopy and TURP yesterday,2016.He had a General Anesthetic with a # 5 LMA. Anesthetic record was reviewed and appears to have been an uneventful procedure.I have examined his throat and there doesn't appear to be trauma,swelling or erythema. The right submandibular area doesn't appear swollen or full. I have explained to the patient with the nurse present that this is common for a sore ,dry raspy throat to occur and that this may last a day or two and is usually self-limiting. I encouraged him to use throat lozenges and to gargle with warm water and salt. If this doesn't resolve in three days I advised him to call the Dept. of Anesthesiology , here at [facility].
--- NOTE | 2016-10-21 11:06 | Discharge Summary ---
Discharge Summary Date of Service Oct 21, 2016. Discharge Summary Admission Date: Oct 17, 2016 at 13:57 Discharge Date: Oct 18, 2016 Discharge Disposition: Home Principal Diagnosis: Hematuria; BPH Procedures: cystoscopy; TURP Medication Reconciliation Continued Medications: Alprazolam (Xanax) 1 Mg Tab 1 MG PO HS PRN for Sleep, TAB Amlodipine Besylate (Norvasc) 5 Mg Tab 5 MG PO DAILY, TAB Aspirin (Aspirin Ec) 81 Mg Tab 81 MG PO DAILY Atorvastatin (Lipitor) 20 Mg Tab 10 MG PO DAILY, TAB Clopidogrel (Plavix) 75 Mg Tab 75 MG PO DAILY, TAB Ergocalciferol (Vitamin D 76623 Unit) 50,000 Unit Cap 1 CAP PO WK for 28 Days, #4 CAP 5 Refills Furosemide (Lasix) 20 Mg Tab 20 MG PO QAM, #30 TAB Isosorbide Mononitrate (Imdur Ext Rel) 60 Mg Tab 60 MG PO QAM, TAB Levothyroxine Sodium (Synthroid) 25 Mcg Tab 50 MCG PO DAILY, TAB Metoprolol Tartrate (Lopressor) 50 Mg Tab 50 MG PO BID, TAB Nitroglycerin (Nitrostat) 0.4 Mg Tab 0.4 MG UT PRN PRN for chest pain, BTL Omeprazole (Prilosec) 40 Mg Cap 40 MG PO DAILY, CAP Ramipril (Ramipril) 2.5 Mg Cap 1 CAP PO DAILY for 90 Days, #90 CAP 3 Refills Tramadol (Ultram) 50 Mg Tab 50 MG PO Q4H PRN for Pain, TAB [lorazepam] () 0.5 MG PO BID PRN for Anxiety Hospital Course Admitted for cystoscopy secondary to hematuria. No bladder tumors identified, but he had significant prostate regrowth (prior TURP many years ago). This appears to be the likely cause of his bleeding, and after discussion with his daughter, we elected to perform a TURP during this anesthesia. In summary, he tolerated the procedure very well. He was in stable condition when he was sent to the floor post operatively. His urine remained clear overnight and he had his catheter discontinued on the morning of post operative day #1 and was subsequently d/c'ed home. Total time spent on discharge = This includes examination of the patient, discharge planning, medication reconciliation, and communication with other providers. Discharge Instructions Please see previously written d/c instructions
[2016-11-12] MEDS ORDERED: PRS5 PO (15:17)
== END 2016-10-18 12:37 | disposition home or self-care (01) ==
LOC: C.ACU 11:39 → C.MSN 13:57 → ENRESERV 14:24
PROVIDERS: ADMIT Urology; ATTEND Urology
DX: R31.9 Hematuria, unspecified (principal); N40.1 Benign prostatic hyperplasia with lower urinary tract symptoms; I12.9 Hypertensive chronic kidney disease with stage 1 through stage 4 chronic kidney disease, or unspecified chronic kidney disease; N18.9 Chronic kidney disease, unspecified; E11.22 Type 2 diabetes mellitus with diabetic chronic kidney disease; Z79.82 Long term (current) use of aspirin; Z85.528 Personal history of other malignant neoplasm of kidney; Z95.1 Presence of aortocoronary bypass graft; Z95.2 Presence of prosthetic heart valve

== ENCOUNTER 2016-11-10 01:25 | Inpatient (IN) | payer OTHER ==
[~2016-11-10] VITALS: Ht 177.8 cm; Wt 96.8 kg
[~2016-11-10 01:25] MED LIST changes: -ATROPINE SULFATE 0.1 MG/ML 5ML SYR IV PRN; -CHOL2000 PO; -CIPROFLOXACIN / D5W 400 MG IV SCH; -DEXAMETHASONE SOD INJ 4 MG/ML VIAL ONE; +ERGO500037 PO; -EpHEDrine SULFATE INJ 50 MG/ML AMP IV PRN; -FENTANYL CITRATE INJ 50 MCG/1 ML 2 ML VIAL IV PRN; -FENTANYL CITRATE INJ 50 MCG/1 ML 2 ML VIAL ONE; -HYDROmorphone INJ 1 MG/ML SYR IV PRN; -LACTATED RINGER'S 1000ML 1,000 ML IV SCH; -LIDOCAINE HCL 2% 2 ML VIAL (20MG/ML) ONE; -MELATAB2 PO; -MIDAZOLAM HCL 1 MG/ML 2ML VIAL ONE; -ONDANSETRON INJ 2 MG/ML 2 ML VIAL IV PRN; -ONDANSETRON INJ 2 MG/ML 2 ML VIAL ONE; -PROPOFOL IV EMULSION 10 MG/ML 20 ML VIAL IV ONE; -RANO500T PO; +TRAM-10 PO; +lorazepam PO
[2016-11-10 01:31] VITALS: Ht 177.8 cm; Wt 96.8 kg
[2016-11-10] MEDS ORDERED: FESO4TAB PO (01:44)
--- NOTE | 2016-11-10 02:31 | EMERGENCY ROOM VISIT NOTE ---
History Report prepared by Rj: David Smith Under the Supervision of: Dr. Clari Gastelum D.O. First contact with patient: 02:05 Chief Complaint: URINARY SYMPTOMS Stated Complaint: BLOCKAGE,UNABLE TO URINATE,PAIN History of Present Illness The patient is a 81 year old male who presents to the Emergency Room with complaints of urinary symptoms that began 8 hours ago. He rates his current discomfort a 10/10 in severity. The patient had a recent prostate surgery that was causing him to void blood. He thinks that he may have a blockage. He has a past medical history of problems with urinary catheter placement. The patient is unable to urinate. Source of History: patient Onset: 8 hours ago Position: other () Symptom Intensity: 10/10 Quality: pressure Timing: worsening Associated Symptoms: + urinary symptoms Note: He denies any other abnormal symptoms. Review of Systems See HPI for pertinent positives & negatives. A total of 10 systems reviewed and were otherwise negative. Past Medical & Surgical Medical Problems: (1) Acute urinary retention (2) Marilu hematuria (3) Heart catheterization (4) Heart disease (5) HTN (hypertension) (6) Kidney disease (7) Right pyelonephrotomy Surgical Problems: (1) H/O hernia repair (2) History of heart valve replacement Family History FH: cancer FH: heart disease Hypertension Kidney disease or stones Social History Smoking Status: Never Smoker Smokeless Tobacco Use: No Alcohol Use: none Marital Status: single Housing Status: lives alone Occupation Status: retired Current/Historical Medications Scheduled Amlodipine Besylate (Norvasc), 5 MG PO DAILY Aspirin (Aspirin Ec), 81 MG PO DAILY Atorvastatin (Lipitor), 10 MG PO DAILY Clopidogrel (Plavix), 75 MG PO DAILY Ergocalciferol (Vitamin D 10940 Unit), 1 CAP PO WK Fesoterodine Fumarate (Toviaz), Unknown Dose PO DAILY Furosemide (Lasix), 20 MG PO QAM Isosorbide Mononitrate (Imdur Ext Rel), 60 MG PO QAM Levothyroxine Sodium (Synthroid), 50 MCG PO DAILY Metoprolol Tartrate (Lopressor), 50 MG PO BID Omeprazole (Prilosec), 40 MG PO DAILY Ramipril (Ramipril), 2.5 MG PO DAILY Scheduled PRN Alprazolam (Xanax), 1 MG PO HS PRN for Sleep Lorazepam (Ativan), 0.5 MG PO BID PRN for Anxiety Nitroglycerin (Nitrostat), 0.4 MG UT PRN PRN for chest pain Tramadol (Ultram), 50 MG PO Q4H PRN for Pain Allergies Coded Allergies: No Known Allergies (Unverified , 11/10/16) Physical Exam Vital Signs Date Time Temp Pulse Resp B/P (MAP) Pulse Ox O2 Delivery O2 Flow Rate FiO2 11/10/16 06:00 80 20 146/84 94 Room Air 11/10/16 04:00 88 18 134/78 94 Room Air 11/10/16 02:30 88 20 125/85 93 Room Air 11/10/16 01:31 36.8 84 20 189/100 92 Room Air Physical Exam HEENT: Head - normocephalic and atraumatic Pupils are equal, round, and reactive to light. Extraocular eye muscles are intact, and sclera are anicteric. Nose - moist nasal mucosa without discharge. Mouth - moist buccal mucosa. Oropharynx is nonerythematous and there is no tonsillar exudate or edema noted. Neck: Supple; no JVD, nuchal rigidity, cervical lymphadenopathy. Heart: Regular rate and rhythm. There is a normal S1 and S2 with no murmurs, clicks, or gallops appreciated. Lungs: Clear to auscultation bilaterally with no wheezes, rales, or rhonchi. Abdomen: Soft, completely nontender, nondistended, with good bowel sounds. There are no palpable pulsatile masses or hepatosplenomegaly. There is no guarding, rigidity, or rebound noted. Extremities: No evidence of cyanosis, clubbing, or edema. There are easily palpable peripheral pulses. Skin: warm and dry with good turgor and no rashes. Medical Decision & Procedures Laboratory Results 11/10/16 03:45 Red Blood Count 4.41, Mean Corpuscular Volume 88.9, Mean Corpuscular Hemoglobin 30.4, Mean Corpuscular Hemoglobin Concent 34.2, Mean Platelet Volume 11.6, Neutrophils (%) (Auto) 76.4, Lymphocytes (%) (Auto) 14.7, Monocytes (%) (Auto) 5.5, Eosinophils (%) (Auto) 2.8, Basophils (%) (Auto) 0.2, Neutrophils # (Auto) 7.44, Lymphocytes # (Auto) 1.43, Monocytes # (Auto) 0.54, Eosinophils # (Auto) 0.27, Basophils # (Auto) 0.02 11/10/16 03:45 Test 11/10/16 02:30 11/10/16 03:45 Urine Color RED Urine Appearance TURBID (CLEAR) Urine pH (4.5-7.5) Urine Specific [place] 1.023 (1.000-1.030) Urine Protein POS (NEG) Urine Glucose (UA) (NEG) Urine Ketones (NEG) Urine Occult Blood (NEG) Urine Nitrite (NEG) Urine Bilirubin (NEG) Urine Urobilinogen (NEG) Urine Leukocyte Esterase (NEG) Urine RBC >30 /hpf (0-4) Urine WBC >30 /hpf (0-5) Urine Epithelial Cells 0-5 /lpf (0-5) Urine Bacteria NEG (NEG) White Blood Count 9.74 K/uL (4.8-10.8) Red Blood Count 4.41 M/uL (4.7-6.1) Hemoglobin 13.4 g/dL (14.0-18.0) Hematocrit 39.2 % (42-52) Mean Corpuscular Volume 88.9 fL (80-100) Mean Corpuscular Hemoglobin 30.4 pg (25-34) Mean Corpuscular Hemoglobin Concent 34.2 g/dl (32-36) Platelet Count 245 K/uL (130-400) Mean Platelet Volume 11.6 fL (7.4-10.4) Neutrophils (%) (Auto) 76.4 % Lymphocytes (%) (Auto) 14.7 % Monocytes (%) (Auto) 5.5 % Eosinophils (%) (Auto) 2.8 % Basophils (%) (Auto) 0.2 % Neutrophils # (Auto) 7.44 K/uL (1.4-6.5) Lymphocytes # (Auto) 1.43 K/uL (1.2-3.4) Monocytes # (Auto) 0.54 K/uL (0.11-0.59) Eosinophils # (Auto) 0.27 K/uL (0-0.5) Basophils # (Auto) 0.02 K/uL (0-0.2) RDW Standard Deviation 43.3 fL (36.4-46.3) RDW Coefficient of Variation 13.1 % (11.5-14.5) Immature Granulocyte % (Auto) 0.4 % Immature Granulocyte # (Auto) 0.04 K/uL (0.00-0.02) Prothrombin Time 10.5 SECONDS (9.0-12.0) Prothromb Time International Ratio 1.0 (0.9-1.1) Activated Partial Thromboplast Time 28.7 SECONDS (21.0-31.0) Partial Thromboplastin Ratio 1.1 Anion Gap 11.0 mmol/L (3-11) Est Creatinine Clear Calc Drug Dose 40.8 ml/min Estimated GFR () 45.5 Estimated GFR (Non- 39.3 BUN/Creatinine Ratio 14.4 (10-20) Calcium Level 8.6 mg/dl (8.5-10.1) Laboratory results per my review. Medications Administered Medications (Trade) Dose Ordered Sig/Jacqui Route Start Time Stop Time Status Last Admin Dose Admin Hydromorphone HCl (Dilaudid Inj) 1 mg NOW STAT IV 11/10/16 06:18 11/10/16 06:19 DC 11/10/16 06:53 1 MG Procedure Dunham catheter was placed. Three-way Dunham catheter was placed for continuous bladder irrigation ED Course 0205: Past medical records reviewed. The patient was evaluated in room B5. A complete history and physical exam was performed. 0315: A Dunham catheter was placed into his bladder. The bladder was irrigated and he had flow of marilu blood from the bladder. 0328: I was informed that the patient takes Aspirin and Plavix. There was marilu blood out of his catheter. 0512: The patient continues to clot the catheter. We will place a 3-way catheter for continuous bladder irrigation. 0516: Upon reevaluation, I discussed findings and results with him. He verbalized agreement of the treatment plan. I spoke with of the [facility] Hospitalist Service. The patient will be evaluated for further management and care. Medical Decision The patient is an 81 year old male who presents to the ED with urinary symptoms. Differential diagnosis includes urinary retention, UTI, prostate hypertrophy, and postsurgical complication. I attest that I have personally reviewed the patient's current medication list. Patient was found to have normal blood pressure on screening and does not require follow-up. Laboratory Results: Normal white blood cell count, hemoglobin stable at 13.4, creatinine up to 1.6, BUN 23, glucose 136, urinalysis shows turbid urine with positive protein and greater than 30 red and white cells. The patient does have a history of hematuria with recent surgery by Dr. Sharpe. No bladder tumors were noted but there was re-growth of his prostate. The patient has significant hematuria. Does light bladder irrigation, he has continual urinary retention and clotting of the catheter. I discussed the case with the [facility] Hospitalist and they will evaluate for further management. Consults Time Called: 05 Consulting Physician: Dr. Lisa PUGH Returned Call: 0516 He will be evaluating the patient for further management and care. Impression Primary Impression: Hematuria Additional Impression: Urinary retention Scribe Attestation The scribe's documentation has been prepared under my direction and personally reviewed by me in its entirety. I confirm that the note above accurately reflects all work, treatment, procedures, and medical decision making performed by me. Departure Information Dispostion Being Evaluated By Hospitalist Referrals Dora Mcmahon PA-C (PCP) Patient Instructions My [facility] Problem Qualifiers
[2016-11-10 03:20] LABS: MANUAL MICROSCOPIC REQUIRED? YES; REVIEW REQ? NO; SULFASALICYLIC ACID POS (NEG); URINE APPEARANCE TURBID (CLEAR); URINE COLOR RED; URINE SPECIFIC GRAVITY 1.023 (1.000-1.030)
[2016-11-10 03:21] LABS: URINE BACTERIA NEG (NEG); URINE RBC >30 /hpf (0-4); URINE WBC >30 /hpf (0-5)
[2016-11-10 04:33] LABS: HEMATOCRIT 39.2 % (42-52); MEAN CELL VOLUME 88.9 fL (80-100); MEAN CORPUSCULAR HEMOGLOBIN 30.4 pg (25-34); MEAN CORPUSCULAR HGB CONC 34.2 g/dl (32-36); MEAN PLATELET VOLUME 11.6 fL (7.4-10.4); PLATELET COUNT 245 K/uL (130-400); RED BLOOD COUNT 4.41 M/uL (4.7-6.1); WHITE BLOOD COUNT 9.74 K/uL (4.8-10.8)
[2016-11-10 04:52] LABS: BUN/CREATININE RATIO 14.4 (10-20); CALCIUM 8.6 mg/dl (8.5-10.1); CREATININE 1.6 mg/dl (0.60-1.40); PARTIAL THROMBOPLASTIN RATIO 1.1; POTASSIUM 3.9 mmol/L (3.5-5.1); PROTHROMBIN TIME (PATIENT) 10.5 SECONDS (9.0-12.0)
[2016-11-10 05:13] LABS: BASO % 0.2 %; BASO ABS # 0.02 K/uL (0-0.2); COMPLETE YES; EOS % 2.8 %; IG% 0.4 %; LYMPH % 14.7 %; LYMPH ABS # 1.43 K/uL (1.2-3.4); MONO % 5.5 %; NEUT % 76.4 %
[2016-11-10] MEDS ORDERED: LORA-741 PO (05:45)
[2016-11-10] MEDS ORDERED: ALPRAZOLAM 0.5 MG TAB PO PRN (06:15)
[2016-11-10] MEDS ORDERED: TRAMADOL HCL 50 MG TAB PO PRN (06:15)
[2016-11-10] MEDS ORDERED: POLYETHYLENE (MIRALAX) 17 GM PACK PO PRN (06:15)
[2016-11-10] MEDS ORDERED: NITROGLYCERIN 0.4 MG SL PER TAB CHARGE UT PRN (06:15)
[2016-11-10] MEDS ORDERED: ACETAMINOPHEN 325 MG TAB PO PRN (06:15)
[2016-11-10] MEDS ORDERED: ONDANSETRON INJ 2 MG/ML 2 ML VIAL IV PRN (06:15)
[2016-11-10] MEDS ORDERED: HYDROmorphone INJ 1 MG/ML SYR IV STA (06:18)
--- NOTE | 2016-11-10 06:28 | History and Physical ---
History & Physical Date & Time of Service: Nov 10, 2016 at 06:19 Chief Complaint: Blockage,Unable To Urinate,Pain Primary Care Physician: Dora Mcmahon PA-C History of Present Illness 81-year-old male with a past medical history of coronary artery disease status post cardiac catheterization, hypertension, status post right nephrectomy for renal cell carcinoma presented to the ER with complaints of persistent hematuria which started tonight. The patient stated that he noticed jaswinder blood with clots while he was urinating and also had some dysuria. Denied any abdominal pain, nausea, vomiting, diarrhea. denied any chest pain, palpitations or difficulty breathing. Denied any history of trauma. s/p cystoscopy with TURP 10/21 Past Medical/Surgical History Medical Problems: (1) Heart catheterization Status: Resolved (2) Heart disease Status: Chronic (3) HTN (hypertension) Status: Chronic (4) Kidney disease Status: Chronic (5) Right pyelonephrotomy Status: Resolved Surgical Problems: (1) H/O hernia repair Status: Resolved (2) History of heart valve replacement Status: Resolved Family History FH: cancer FH: heart disease Hypertension Kidney disease or stones Social History Smoking Status: Never Smoker Smokeless Tobacco Use: No Marital Status: single Occupational Status: retired Immunizations History of Influenza Vaccine: Yes Influenza Vaccine Date: Feb 20, 2013 History of Tetanus Vaccine?: Yes Tetanus Immunization Date: May 23, 2008 History of Pneumococcal: Yes Pneumococcal Date: May 23, 2010 History of Hepatitis B Vaccine: No Multi-Drug Resistant Organisms History of MDRO: No Allergies Coded Allergies: No Known Allergies (Unverified , 11/10/16) Home Medications Scheduled Amlodipine Besylate (Norvasc), 5 MG PO DAILY Aspirin (Aspirin Ec), 81 MG PO DAILY Atorvastatin (Lipitor), 10 MG PO DAILY Ergocalciferol (Vitamin D 09487 Unit), 1 CAP PO WK Fesoterodine Fumarate (Toviaz), Unknown Dose PO DAILY Finasteride (Finasteride), 5 MG PO DAILY Furosemide (Lasix), 20 MG PO QAM Isosorbide Mononitrate (Imdur Ext Rel), 60 MG PO QAM Levothyroxine Sodium (Synthroid), 50 MCG PO DAILY Metoprolol Tartrate (Lopressor), 50 MG PO BID Omeprazole (Prilosec), 40 MG PO DAILY Ramipril (Ramipril), 2.5 MG PO DAILY Scheduled PRN Alprazolam (Xanax), 1 MG PO HS PRN for Sleep Lorazepam (Ativan), 0.5 MG PO BID PRN for Anxiety Nitroglycerin (Nitrostat), 0.4 MG UT PRN PRN for chest pain Tramadol (Ultram), 50 MG PO Q4H PRN for Pain Review of Systems Constitutional: No fever, No chills Eyes: No worsening of vision ENT: No hearing loss Respiratory: No cough Cardiovascular: No chest pain Abdomen: No pain, No nausea, No vomiting Musculoskeletal: No joint pain Genitourinary - Male: + hematuria (jaswinder), + urinary retention, No urinary frequency Neurologic: No memory loss Psychiatric: No depression symptoms Endocrine: No fatigue Hematologic / Lymphatic: No abnormal bleeding/bruising Integumentary: No rash Physical Exam Vital Signs Date Time Temp Pulse Resp B/P (MAP) Pulse Ox O2 Delivery O2 Flow Rate FiO2 11/10/16 06:00 80 20 146/84 94 Room Air 11/10/16 04:00 88 18 134/78 94 Room Air 11/10/16 02:30 88 20 125/85 93 Room Air 11/10/16 01:31 36.8 84 20 189/100 92 Room Air General Appearance: WD/WN, no apparent distress Eyes: normal inspection ENT: hearing grossly normal Neck: supple Respiratory/Chest: chest non-tender, lungs clear, normal breath sounds Cardiovascular: regular rate, rhythm Abdomen/GI: normal bowel sounds, non tender, soft Extremities/Musculoskelatal: no pedal edema Neurologic/Psych: alert, normal mood/affect, oriented x 3 Diagnostics Laboratory Results Results Past 24 Hours Test 11/10/16 02:30 11/10/16 03:45 Range/Units Urine Color RED Urine Appearance TURBID CLEAR Urine pH 4.5-7.5 Urine Specific [place] 1.023 1.000-1.030 Urine Protein POS NEG Urine Glucose (UA) NEG Urine Ketones NEG Urine Occult Blood NEG Urine Nitrite NEG Urine Bilirubin NEG Urine Urobilinogen NEG Urine Leukocyte Esterase NEG Urine RBC >30 0-4 /hpf Urine WBC >30 0-5 /hpf Urine Epithelial Cells 0-5 0-5 /lpf Urine Bacteria NEG NEG White Blood Count 9.74 4.8-10.8 K/uL Red Blood Count 4.41 4.7-6.1 M/uL Hemoglobin 13.4 14.0-18.0 g/dL Hematocrit 39.2 42-52 % Mean Corpuscular Volume 88.9 80-100 fL Mean Corpuscular Hemoglobin 30.4 25-34 pg Mean Corpuscular Hemoglobin Concent 34.2 32-36 g/dl Platelet Count 245 130-400 K/uL Mean Platelet Volume 11.6 7.4-10.4 fL Neutrophils (%) (Auto) 76.4 % Lymphocytes (%) (Auto) 14.7 % Monocytes (%) (Auto) 5.5 % Eosinophils (%) (Auto) 2.8 % Basophils (%) (Auto) 0.2 % Neutrophils # (Auto) 7.44 1.4-6.5 K/uL Lymphocytes # (Auto) 1.43 1.2-3.4 K/uL Monocytes # (Auto) 0.54 0.11-0.59 K/uL Eosinophils # (Auto) 0.27 0-0.5 K/uL Basophils # (Auto) 0.02 0-0.2 K/uL RDW Standard Deviation 43.3 36.4-46.3 fL RDW Coefficient of Variation 13.1 11.5-14.5 % Immature Granulocyte % (Auto) 0.4 % Immature Granulocyte # (Auto) 0.04 0.00-0.02 K/uL Prothrombin Time 10.5 9.0-12.0 SECONDS Prothromb Time International Ratio 1.0 0.9-1.1 Activated Partial Thromboplast Time 28.7 21.0-31.0 SECONDS Partial Thromboplastin Ratio 1.1 Sodium Level 139 136-145 mmol/L Potassium Level 3.9 3.5-5.1 mmol/L Chloride Level 106 98-107 mmol/L Carbon Dioxide Level 22 21-32 mmol/L Anion Gap 11.0 3-11 mmol/L Blood Urea Nitrogen 23 7-18 mg/dl Creatinine 1.60 0.60-1.40 mg/dl Est Creatinine Clear Calc Drug Dose 40.8 ml/min Estimated GFR () 45.5 Estimated GFR (Non- 39.3 BUN/Creatinine Ratio 14.4 10-20 Random Glucose 136 70-99 mg/dl Calcium Level 8.6 8.5-10.1 mg/dl Microbiology Results 11/10/16 Urine Culture, Received Pending Impression Assessment and Plan 81-year-old male with a past medical history of coronary artery disease status post cardiac catheterization, hypertension, status post right nephrectomy for renal cell carcinoma presented to the ER with complaints of persistent hematuria which started tonight Jaswinder hematuria with blood clots and acute urinary retention: s/p TURP 10/21 - Continue IV fluids - 3 way catheter with bladder irrigation - Monitor H&H - Consult urology - NPO CKD status post right nephrectomy - Creatinine at 1.6, baseline around 1.4 -Continue IV fluids and monitor creatinine Coronary artery disease: Status post cardiac catheterization - Continue aspirin, Plavix, Lipitor, ramipril, Lopressor - Aspirin and Plavix have been held for now in anticipation of procedure but will need to be restarted CHF: - Continue Lasix -Daily weights with I's and O's Hypertension: - Continue Norvasc and ramipril , Imdur Hypothyroidism: - Continue Synthroid DVT prophylaxis: SCDs Avoid chemical anticoagulation in light of hematuria DO NOT RESUSCITATE Disposition: Admitted to [facility] Attending Addendum: I physically seen and examined this patient, have supervised the medical residents activities, and agree with the H&P as noted above with the following exceptions: NONE The patient is awake, well-developed and adequately nourished, alert and oriented 3, normocephalic and atraumatic, lying in bed and in no acute distress. HEENT--PERRL, EOMI, mucous membranes and oropharynx dry. Neck--supple, no JVD or bruits, thyroid normal, trachea midline, no adenopathy. Heart--normal S1 and S2, no extra beats, no murmurs, rubs or gallops. Lungs--clear bilaterally with good air movement, no respiratory distress, no accessory muscle use. Abdomen--normal bowel sounds and soft, nontender and nondistended, no hernias or masses, no organomegaly. Extremities--no cyanosis, clubbing or edema. There are good distal pulses b/l. Dermatologic--normal skin turgor, normal color, warm and dry, no abnormal lymph nodes, no rash. Neurologic--cranial nerves II through XII grossly intact, motor and sensory examination normal. Rheumatologic--normal range of motion, nontender, muscles and joints. Psychiatric--normal affect. Assessment and Plan: 1. Renal cell carcinoma/status post right nephrectomy/recent urology admission for hematuria secondary to BPH with TURP performed/now with recurrent hematuria , blood clots and acute urinary retention--patient is admitted to the medical surgical floor. CBI. Ceftriaxone 1 g IV daily. IV fluid rehydration. Nothing by mouth status Consult urology. Mild renal insufficiency with creatinine 1.6/baseline 1.4, follow serial BMP and magnesium levels. Level of Care Med/Surg Resuscitation Status DO NOT RESUSCITATE VTE Prophylaxis VTE Risk Assessment Done? Y/N: Yes Risk Level: Moderate Given or contraindicated: SCD's Resident Tracking Resident Involvement: Resident Care Provided Care Provided: Adult Hospital Medicine
[2016-11-10 07:53] VITALS: BP 151/84; PULSE 79; TEMP 36.6
[2016-11-10 07:56] VITALS: BP 151/84; PULSE 77; TEMP 36.6; O2SAT 92
[2016-11-10] MEDS ORDERED: ASPIRIN 81 MG ECTAB PO SCH (08:00)
[2016-11-10] MEDS ORDERED: CLOPIDOGREL BISULFATE 75 MG TAB PO SCH (08:00)
[2016-11-10] MEDS: METOPROLOL TARTRATE 50 MG TAB PO SCH ×2 (08:48→19:35)
[2016-11-10] MEDS: PANTOprazole SOD 40 MG TAB PO SCH (08:48)
[2016-11-10] MEDS: FUROSEMIDE 20 MG TAB PO SCH (08:48)
[2016-11-10] MEDS: CEFTRIAXONE SOD INJ 1 GM in DEXTROSE 5% ADD-VANTAGE 50ML 50 ML IV SCH (08:48)
[2016-11-10] MEDS: ENALAPRIL MALEATE 10 MG TAB PO SCH (08:48)
[2016-11-10] MEDS: ISOSORBIDE MONONITRATE 60 MG TABCR PO SCH (08:48)
[2016-11-10] MEDS: ATORVASTATIN 20 MG TAB PO SCH (08:49)
[2016-11-10] MEDS: AMLODIPINE BESYLATE 5 MG TAB PO SCH (08:49)
[2016-11-10 10:50] VITALS: O2SAT 93
--- NOTE | 2016-11-10 12:36 | Progress Note ---
Subjective Date of Service: Nov 10, 2016. Subjective Pt evaluation today including: conversation w/ patient, physical exam, lab review, review of inpatient medication list Pain: denies pain PO Intake: NPO for possible cysto Voiding: corral catheter in place patient feeling well, no issues overnight 3 way bladder irrigation underway, urology to assess later today keep NPO until urology decides on cystoscopy Problem List Medical Problems: (1) Bladder mass Status: Acute (2) Hematuria Status: Acute (3) Hematuria Status: Acute (4) Platelet inhibition due to Plavix Status: Acute (5) Urinary retention Status: Acute Review of Systems Male : + hematuria, + problem reported (corral) All Other Systems: Reviewed and Negative Medications Current Inpatient Medications Medications (Trade) Dose Ordered Sig/Jacqui Route Start Time Stop Time Status Last Admin Dose Admin Acetaminophen (Tylenol Tab) 650 mg Q4H PRN PO 11/10/16 06:15 12/10/16 06:14 Polyethylene (Miralax Powder Packet) 17 gm DAILY PRN PO 11/10/16 06:15 12/10/16 06:14 Ondansetron HCl (Zofran Inj) 4 mg Q6H PRN IV 11/10/16 06:15 12/10/16 06:14 Alprazolam (Xanax Tab) 1 mg HSZ PRN PO 11/10/16 06:15 12/10/16 06:14 Amlodipine Besylate (Norvasc Tab) 5 mg DAILY PO 11/10/16 08:00 12/10/16 08:59 11/10/16 08:49 5 MG Atorvastatin Calcium (Lipitor Tab) 10 mg DAILY PO 11/10/16 08:00 12/10/16 08:59 11/10/16 08:49 10 MG Furosemide (Lasix Tab) 20 mg QAM PO 11/10/16 08:00 12/10/16 08:59 11/10/16 08:48 20 MG Isosorbide Mononitrate (Imdur Ext Rel Tab) 60 mg QAM PO 11/10/16 08:00 12/10/16 08:59 11/10/16 08:48 60 MG Levothyroxine Sodium (Synthroid Tab) 50 mcg DAILYBB PO 11/11/16 06:30 12/11/16 06:29 Metoprolol Tartrate (Lopressor Tab) 50 mg BID PO 11/10/16 08:00 12/10/16 08:59 11/10/16 08:48 50 MG Nitroglycerin (Nitrostat Tab) 0.4 mg PRN PRN UT 11/10/16 06:15 12/10/16 06:14 Tramadol HCl (Ultram Tab) 50 mg Q4H PRN PO 11/10/16 06:15 12/10/16 06:14 Pantoprazole Sodium (Protonix Tab) 40 mg QAM PO 11/10/16 08:00 12/10/16 08:59 11/10/16 08:48 40 MG Enalapril Maleate (Vasotec Tab) 10 mg DAILY PO 11/10/16 08:00 12/10/16 08:59 11/10/16 08:48 10 MG Aspirin (Ecotrin Tab) 81 mg DAILY PO 11/10/16 08:00 12/10/16 08:59 Future Hold 11/10/16 08:48 81 MG Clopidogrel Bisulfate (plAVix TAB) 75 mg DAILY PO 11/10/16 08:00 12/10/16 08:59 Future Hold Ceftriaxone Sodium 1 gm/ Dextrose 50 ml @ 100 mls/hr Q24H IV 11/10/16 09:00 11/20/16 08:59 11/10/16 08:48 100 MLS/HR Objective Vital Signs Date Time Temp Pulse Resp B/P (MAP) Pulse Ox O2 Delivery O2 Flow Rate FiO2 11/10/16 10:50 93 Room Air 11/10/16 07:56 36.6 77 18 151/84 (106) 92 Room Air 11/10/16 07:53 36.6 79 18 151/84 11/10/16 06:00 80 20 146/84 94 Room Air 11/10/16 04:00 88 18 134/78 94 Room Air 11/10/16 02:30 88 20 125/85 93 Room Air 11/10/16 01:31 36.8 84 20 189/100 92 Room Air Physical Exam General Appearance: WD/WN, no apparent distress Eyes: normal inspection, EOMI, sclerae normal ENT: normal ENT inspection, hearing grossly normal, pharynx normal Neck: supple, no adenopathy, no JVD, trachea midline Respiratory/Chest: chest non-tender, lungs clear, normal breath sounds, no respiratory distress, no accessory muscle use Cardiovascular: regular rate, rhythm, no edema, no gallop, no JVD, no murmur Abdomen: normal bowel sounds, non tender, soft, no organomegaly Extremities: normal range of motion, non-tender, normal inspection, no pedal edema, no calf tenderness, pelvis stable Neurologic/Psychiatric: twister tender II-XII nml as tested, no motor/sensory deficits, alert, normal mood/affect, oriented x 3 Skin: normal color, warm/dry, no rash Laboratory Results Last 24 Hours Test 11/10/16 02:30 11/10/16 03:45 Urine Color RED Urine Appearance TURBID Urine pH Urine Specific [place] 1.023 Urine Protein POS Urine Glucose (UA) Urine Ketones Urine Occult Blood Urine Nitrite Urine Bilirubin Urine Urobilinogen Urine Leukocyte Esterase Urine RBC >30 /hpf Urine WBC >30 /hpf Urine Epithelial Cells 0-5 /lpf Urine Bacteria NEG White Blood Count 9.74 K/uL Red Blood Count 4.41 M/uL Hemoglobin 13.4 g/dL Hematocrit 39.2 % Mean Corpuscular Volume 88.9 fL Mean Corpuscular Hemoglobin 30.4 pg Mean Corpuscular Hemoglobin Concent 34.2 g/dl Platelet Count 245 K/uL Mean Platelet Volume 11.6 fL Neutrophils (%) (Auto) 76.4 % Lymphocytes (%) (Auto) 14.7 % Monocytes (%) (Auto) 5.5 % Eosinophils (%) (Auto) 2.8 % Basophils (%) (Auto) 0.2 % Neutrophils # (Auto) 7.44 K/uL Lymphocytes # (Auto) 1.43 K/uL Monocytes # (Auto) 0.54 K/uL Eosinophils # (Auto) 0.27 K/uL Basophils # (Auto) 0.02 K/uL RDW Standard Deviation 43.3 fL RDW Coefficient of Variation 13.1 % Immature Granulocyte % (Auto) 0.4 % Immature Granulocyte # (Auto) 0.04 K/uL Prothrombin Time 10.5 SECONDS Prothromb Time International Ratio 1.0 Activated Partial Thromboplast Time 28.7 SECONDS Partial Thromboplastin Ratio 1.1 Sodium Level 139 mmol/L Potassium Level 3.9 mmol/L Chloride Level 106 mmol/L Carbon Dioxide Level 22 mmol/L Anion Gap 11.0 mmol/L Blood Urea Nitrogen 23 mg/dl Creatinine 1.60 mg/dl Est Creatinine Clear Calc Drug Dose 40.8 ml/min Estimated GFR () 45.5 Estimated GFR (Non- 39.3 BUN/Creatinine Ratio 14.4 Random Glucose 136 mg/dl Calcium Level 8.6 mg/dl Assessment and Plan 81-year-old male with a past medical history of coronary artery disease status post cardiac catheterization, hypertension, status post right nephrectomy for renal cell carcinoma presented to the ER with complaints of persistent hematuria which started tonight - Hematuria with clots and urinary retentions, s/p TURP 10/21 likely caused by Plavix and aspirin, holding both urine pink tinged, urology to re-evaluate later today keep NPO until decision made about cysto - CKD status post right nephrectomy Cr stable, continue gentle IV fluids but would d/c if he is allowed to eat/ drink - Coronary artery disease: s/p drug eluting stent in January/February 2016 Continue Lipitor, ramipril, Lopressor will be able to resume Aspirin but should not hold Plavix with recurrent bleeding ideally he should be on Plavix for another 3 months - Chronic diastolic HF: appears euvolemic, continue Lasix - Hypertension: Continue Norvasc and ramipril , Imdur - Hypothyroidism: Continue Synthroid DVT prophylaxis: SCDs Avoid chemical anticoagulation in light of hematuria DO NOT RESUSCITATE
--- NOTE | 2016-11-10 13:59 | Urology Consultation ---
History General Date of Service: Nov 10, 2016. Primary Care Physician: Dora Mcmahon PA-C History of Present Illness 81 y/o male discharged recently after a turp on plavix returns now in clot retention . He had a corral placed in the er and 3 way irrigationwas started and the urine has not clotted and is flowing well . Plavix and aspirin was ordered on admission and I cancelled plavix . Pt told he could eat if urine did not get worse at lunch. Pt denies chest pain or s/p pain now Laboratory Labs were reviewed and are within normal limits unless listed below. Labs are available in the chart and at [facility] Problem List Medical Problems: (1) Bladder mass Status: Acute (2) Hematuria Status: Acute (3) Hematuria Status: Acute (4) Platelet inhibition due to Plavix Status: Acute (5) Urinary retention Status: Acute Past History cancer, coronary artery disease, hypertension, other Past Surgical History: cardiac catheterization, other Family History FH: cancer FH: heart disease Hypertension Kidney disease or stones Social History Hx Tobacco Use In Past Year?: No Smoking: non-smoker Drug use: none Marital status: single Occupation status: retired Immunizations History of Influenza Vaccine: Yes Influenza Vaccine Date: Feb 20, 2013 History of Tetanus Vaccine?: Yes Tetanus Immunization Date: May 23, 2008 History of Pneumococcal: Yes Pneumococcal Date: May 23, 2010 History of Hepatitis B Vaccine: No History of MDRO No Allergies Coded Allergies: No Known Allergies (Unverified , 11/10/16) Medications Home Medications: Home Meds and Scripts Medications Dose Route/Sig Max Daily Dose Days Date Category Dose Instructions Ativan (Lorazepam) 0.5 Mg Tab 0.5 Mg PO BID PRN 11/10/16 Reported Toviaz (Fesoterodine Fumarate) Unknown Strength Tab Unknown Dose PO DAILY 11/10/16 Reported Ultram (Tramadol HCl) 50 Mg Tab 50 Mg PO Q4H PRN 10/17/16 Reported Vitamin D 81987 Unit (Ergocalciferol) 50,000 Unit Cap 1 Cap PO WK 28 10/17/16 Reported SUNDAY Plavix (Clopidogrel Bisulfate) 75 Mg Tab 75 Mg PO DAILY 10/16/16 Reported Nitrostat (Nitroglycerin) 0.4 Mg Tab 0.4 Mg UT PRN PRN 10/16/16 Reported Aspirin Ec (Aspirin) 81 Mg Tab 81 Mg PO DAILY 10/16/16 Reported Synthroid (Levothyroxine Sodium) 25 Mcg Tab 50 Mcg PO DAILY 10/16/16 Reported Ramipril 2.5 Mg Cap 2.5 Mg PO DAILY 10/10/16 Reported Prilosec (Omeprazole) 40 Mg Cap 40 Mg PO DAILY 10/10/16 Reported Lipitor (Atorvastatin Calcium) 20 Mg Tab 10 Mg PO DAILY 10/27/14 Reported Lasix (Furosemide) 20 Mg Tab 20 Mg PO QAM 05/25/13 Rx Imdur Ext Rel (Isosorbide Mononitrate) 60 Mg Tab 60 Mg PO QAM 05/23/13 Reported Norvasc (Amlodipine Besylate) 5 Mg Tab 5 Mg PO DAILY 05/23/13 Reported Lopressor (Metoprolol Tartrate) 50 Mg Tab 50 Mg PO BID 05/23/13 Reported Xanax (Alprazolam) 1 Mg Tab 1 Mg PO HS PRN 05/23/13 Reported Inpatient Medications: Current Inpatient Medications Medications (Trade) Dose Ordered Sig/Jacqui Route Start Time Stop Time Status Last Admin Dose Admin Acetaminophen (Tylenol Tab) 650 mg Q4H PRN PO 11/10/16 06:15 12/10/16 06:14 Polyethylene (Miralax Powder Packet) 17 gm DAILY PRN PO 11/10/16 06:15 12/10/16 06:14 Ondansetron HCl (Zofran Inj) 4 mg Q6H PRN IV 11/10/16 06:15 12/10/16 06:14 Alprazolam (Xanax Tab) 1 mg HSZ PRN PO 11/10/16 06:15 12/10/16 06:14 Amlodipine Besylate (Norvasc Tab) 5 mg DAILY PO 11/10/16 08:00 12/10/16 08:59 11/10/16 08:49 5 MG Atorvastatin Calcium (Lipitor Tab) 10 mg DAILY PO 11/10/16 08:00 12/10/16 08:59 11/10/16 08:49 10 MG Furosemide (Lasix Tab) 20 mg QAM PO 11/10/16 08:00 12/10/16 08:59 11/10/16 08:48 20 MG Isosorbide Mononitrate (Imdur Ext Rel Tab) 60 mg QAM PO 11/10/16 08:00 12/10/16 08:59 11/10/16 08:48 60 MG Levothyroxine Sodium (Synthroid Tab) 50 mcg DAILYBB PO 11/11/16 06:30 12/11/16 06:29 Metoprolol Tartrate (Lopressor Tab) 50 mg BID PO 11/10/16 08:00 12/10/16 08:59 11/10/16 08:48 50 MG Nitroglycerin (Nitrostat Tab) 0.4 mg PRN PRN UT 11/10/16 06:15 12/10/16 06:14 Tramadol HCl (Ultram Tab) 50 mg Q4H PRN PO 11/10/16 06:15 12/10/16 06:14 Pantoprazole Sodium (Protonix Tab) 40 mg QAM PO 11/10/16 08:00 12/10/16 08:59 11/10/16 08:48 40 MG Enalapril Maleate (Vasotec Tab) 10 mg DAILY PO 11/10/16 08:00 12/10/16 08:59 11/10/16 08:48 10 MG Aspirin (Ecotrin Tab) 81 mg DAILY PO 11/10/16 08:00 12/10/16 08:59 Future Hold 11/10/16 08:48 81 MG Clopidogrel Bisulfate (plAVix TAB) 75 mg DAILY PO 11/10/16 08:00 12/10/16 08:59 Future Hold Ceftriaxone Sodium 1 gm/ Dextrose 50 ml @ 100 mls/hr Q24H IV 11/10/16 09:00 11/20/16 08:59 11/10/16 08:48 100 MLS/HR Review of Systems Review of Systems Constitutional: No fever Eyes: No blurred vision Neurological: + see HPI Endocrine: No problem reported Gastrointestinal: + see HPI Cardiovascular: No chest pain Respiratory: No shortness of breath Skin: + see HPI Musculoskeletal: + see HPI Blood / Lymphatic: + see HPI, + bleed easily Ears / Nose / Throat: + see HPI Psychologic / Mental: + see HPI Male : + blood in urine Physical Exam Vital Signs: Vital Signs Past 12 Hours Date Time Temp Pulse Resp B/P (MAP) Pulse Ox O2 Delivery O2 Flow Rate FiO2 11/10/16 10:50 93 Room Air 11/10/16 07:56 36.6 77 18 151/84 (106) 92 Room Air 11/10/16 07:53 36.6 79 18 151/84 11/10/16 06:00 80 20 146/84 94 Room Air 11/10/16 04:00 88 18 134/78 94 Room Air 11/10/16 02:30 88 20 125/85 93 Room Air Physical Exam: General Appearance: no apparent distress ENT: normal ENT inspection Neck: supple Respiratory/Chest: no respiratory distress Cardiovascular: no edema Extremities: normal range of motion Neurologic/Psychiatric: patient services coordinator II-XII nml as tested Skin: normal color Assessment & Plan Assessment & Plan leave 3 way irrigation irrigate prn hold plavix until urine clear
[2016-11-10 16:07] VITALS: BP 149/80; PULSE 71; TEMP 36.7; O2SAT 93
[2016-11-10] MEDS ORDERED: FINASTERIDE 5 MG TAB PO ONE (16:07)
[2016-11-10] MEDS ORDERED: BELLADONNA/OPIUM SUPP 60 MG SUPP PR PRN (16:15)
[2016-11-10] MEDS ORDERED: OXYBUTYNIN CHLORIDE 5 MG TAB PO PRN (16:15)
[2016-11-10] MEDS: DOCUSATE SODIUM 100 MG CAP PO SCH (19:34)
[2016-11-10 23:29] VITALS: BP 144/87; PULSE 70; TEMP 36.9; O2SAT 97
[2016-11-11] MEDS: LEVOTHYROXINE 50 MCG TAB PO SCH (06:01)
[2016-11-11 07:22] VITALS: BP 158/90; PULSE 80; TEMP 37; O2SAT 92
[2016-11-11] MEDS: CEFTRIAXONE SOD INJ 1 GM in DEXTROSE 5% ADD-VANTAGE 50ML 50 ML IV SCH (08:26)
[2016-11-11] MEDS: ATORVASTATIN 20 MG TAB PO SCH (08:26)
[2016-11-11] MEDS: PANTOprazole SOD 40 MG TAB PO SCH (08:26)
[2016-11-11] MEDS: AMLODIPINE BESYLATE 5 MG TAB PO SCH (08:26)
[2016-11-11] MEDS: METOPROLOL TARTRATE 50 MG TAB PO SCH ×2 (08:27→19:48)
[2016-11-11] MEDS: DOCUSATE SODIUM 100 MG CAP PO SCH ×2 (08:27→19:47)
[2016-11-11] MEDS: FINASTERIDE 5 MG TAB PO SCH (08:27)
[2016-11-11] MEDS: ENALAPRIL MALEATE 10 MG TAB PO SCH (08:28)
[2016-11-11] MEDS: ISOSORBIDE MONONITRATE 60 MG TABCR PO SCH (08:28)
[2016-11-11] MEDS: FUROSEMIDE 20 MG TAB PO SCH (08:29)
--- NOTE | 2016-11-11 09:31 | Progress Note ---
Subjective Date of Service: Nov 11, 2016. Subjective Pt evaluation today including: conversation w/ patient, physical exam, chart review, lab review, review of inpatient medication list Pain: Denies, SP resolved PO Intake: Lis PO Voiding: corral catheter in place (urine clear on slow CBI) 81 yo male admitted with gross hematuria and clot retention, ~1 month postop TURP for prostatic regrowth, no cancer present. Patient and nurses note he was irrigated for a large amount of clot last night, now clear on slow CBI. He notes his SP pressure has resolved. He notes persistent slow stream and intermittency at home after TURP and prior to admission, previous notes reviewed. PVR 0 cc in office, Toviaz provided previously. Currently feels much improved. Problem List Medical Problems: (1) Bladder mass Status: Acute (2) Hematuria Status: Acute (3) Hematuria Status: Acute (4) Platelet inhibition due to Plavix Status: Acute (5) Urinary retention Status: Acute Review of Systems Constitutional: No fever, No chills Eyes: No worsening of vision ENT: No hearing loss Respiratory: No sputum, No wheezing Cardiac: No chest pain, No edema Abdomen: No nausea, No vomiting Male : + see HPI, No hematuria (resolved) Neurologic: No memory loss Psychiatric: No depression symptoms Endo: No fatigue Skin: No new/changing skin lesions Objective Vital Signs Date Time Temp Pulse Resp B/P (MAP) Pulse Ox O2 Delivery O2 Flow Rate FiO2 11/11/16 07:22 37.0 80 16 158/90 (112) 92 Room Air 11/11/16 00:00 Room Air 11/10/16 23:29 36.9 70 20 144/87 (106) 97 Room Air 11/10/16 16:07 36.7 71 16 149/80 (103) 93 Room Air 11/10/16 16:00 Room Air 11/10/16 10:50 93 Room Air Physical Exam General Appearance: WD/WN, no apparent distress ENT: hearing grossly normal Neck: supple, no adenopathy Respiratory/Chest: no respiratory distress, no accessory muscle use Cardiovascular: no JVD Abdomen: non tender, soft Neurologic/Psychiatric: alert Skin: normal color Laboratory Results Last 24 Hours Test 11/11/16 09:14 Assessment and Plan A/P 81 yo male with clot retention, improved hematuria. Finasteride started for likely prostate origin bleeding. Much improved. CBI stopped this AM - if remains clear with ambulation, should be reasonable to proceed with TOV this afternoon. AM labs ordered to ensure stability since admission. Rx for finasteride sent to patient's outpatient pharmacy. Should he continues to notice difficulties with emptying can hold Toviaz. Has outpatient f/u in place next month with our office. Should he have difficulties with his voiding can call to move up appointment. Thank you for allowing us to participate in this patient's acute care.
[2016-11-11 09:59] LABS: HEMATOCRIT 39.2 % (42-52); MEAN CELL VOLUME 90.7 fL (80-100); MEAN CORPUSCULAR HEMOGLOBIN 30.3 pg (25-34); MEAN CORPUSCULAR HGB CONC 33.4 g/dl (32-36); MEAN PLATELET VOLUME 11.5 fL (7.4-10.4); PLATELET COUNT 220 K/uL (130-400); RED BLOOD COUNT 4.32 M/uL (4.7-6.1); WHITE BLOOD COUNT 9.02 K/uL (4.8-10.8)
[2016-11-11 10:36] LABS: BUN/CREATININE RATIO 14.4 (10-20); CALCIUM 8.4 mg/dl (8.5-10.1); CREATININE 1.4 mg/dl (0.60-1.40); POTASSIUM 3.9 mmol/L (3.5-5.1)
--- NOTE | 2016-11-11 12:57 | Progress Note ---
Subjective Date of Service: Nov 11, 2016. Subjective Pt evaluation today including: conversation w/ patient, physical exam, conversation w/ category consultant, review of inpatient medication list Pain: no pain PO Intake: adequate Voiding: corral catheter in place urine clearing in three way catheter irrigation irrigation stopped, keep corral until tomorrow Problem List Medical Problems: (1) Bladder mass Status: Acute (2) Hematuria Status: Acute (3) Hematuria Status: Acute (4) Platelet inhibition due to Plavix Status: Acute (5) Urinary retention Status: Acute Review of Systems Constitutional: + weakness, + fatigue Male : + problem reported (cather, no blood) All Other Systems: Reviewed and Negative Medications Current Inpatient Medications Medications (Trade) Dose Ordered Sig/Jacqui Route Start Time Stop Time Status Last Admin Dose Admin Acetaminophen (Tylenol Tab) 650 mg Q4H PRN PO 11/10/16 06:15 12/10/16 06:14 Polyethylene (Miralax Powder Packet) 17 gm DAILY PRN PO 11/10/16 06:15 12/10/16 06:14 Ondansetron HCl (Zofran Inj) 4 mg Q6H PRN IV 11/10/16 06:15 12/10/16 06:14 Alprazolam (Xanax Tab) 1 mg HSZ PRN PO 11/10/16 06:15 12/10/16 06:14 11/10/16 22:51 1 MG Amlodipine Besylate (Norvasc Tab) 5 mg DAILY PO 11/10/16 08:00 12/10/16 08:59 11/11/16 08:26 5 MG Atorvastatin Calcium (Lipitor Tab) 10 mg DAILY PO 11/10/16 08:00 12/10/16 08:59 11/11/16 08:26 10 MG Furosemide (Lasix Tab) 20 mg QAM PO 11/10/16 08:00 12/10/16 08:59 11/11/16 08:29 20 MG Isosorbide Mononitrate (Imdur Ext Rel Tab) 60 mg QAM PO 11/10/16 08:00 12/10/16 08:59 11/11/16 08:28 60 MG Levothyroxine Sodium (Synthroid Tab) 50 mcg DAILYBB PO 11/11/16 06:30 12/11/16 06:29 11/11/16 06:01 50 MCG Metoprolol Tartrate (Lopressor Tab) 50 mg BID PO 11/10/16 08:00 12/10/16 08:59 11/11/16 08:27 50 MG Nitroglycerin (Nitrostat Tab) 0.4 mg PRN PRN UT 11/10/16 06:15 12/10/16 06:14 Tramadol HCl (Ultram Tab) 50 mg Q4H PRN PO 11/10/16 06:15 12/10/16 06:14 Pantoprazole Sodium (Protonix Tab) 40 mg QAM PO 11/10/16 08:00 12/10/16 08:59 11/11/16 08:26 40 MG Enalapril Maleate (Vasotec Tab) 10 mg DAILY PO 11/10/16 08:00 12/10/16 08:59 11/11/16 08:28 10 MG Aspirin (Ecotrin Tab) 81 mg DAILY PO 11/10/16 08:00 12/10/16 08:59 Future Hold 11/10/16 08:48 81 MG Clopidogrel Bisulfate (plAVix TAB) 75 mg DAILY PO 11/10/16 08:00 12/10/16 08:59 Future Hold Ceftriaxone Sodium 1 gm/ Dextrose 50 ml @ 100 mls/hr Q24H IV 11/10/16 09:00 11/20/16 08:59 11/11/16 08:26 100 MLS/HR Finasteride (Proscar Tab) 5 mg QAM PO 11/11/16 08:00 12/11/16 07:59 11/11/16 08:27 5 MG Oxybutynin Chloride (Ditropan Tab) 5 mg Q8 PRN PO 11/10/16 16:15 12/10/16 16:14 11/10/16 16:27 5 MG Docusate Sodium (coLACE CAP) 100 mg BID PO 11/10/16 20:00 12/10/16 19:59 11/11/16 08:27 100 MG Belladonna/Opium (B & O Adult Supp) 60 mg Q8 PRN PA 11/10/16 16:15 11/24/16 16:14 Objective Vital Signs Date Time Temp Pulse Resp B/P (MAP) Pulse Ox O2 Delivery O2 Flow Rate FiO2 11/11/16 08:30 Room Air 11/11/16 07:22 37.0 80 16 158/90 (112) 92 Room Air 11/11/16 00:00 Room Air 11/10/16 23:29 36.9 70 20 144/87 (106) 97 Room Air 11/10/16 16:07 36.7 71 16 149/80 (103) 93 Room Air 11/10/16 16:00 Room Air Physical Exam General Appearance: no apparent distress, + obese Eyes: normal inspection, EOMI, sclerae normal Neck: supple, no adenopathy, no JVD, trachea midline Respiratory/Chest: chest non-tender, lungs clear, normal breath sounds, no respiratory distress, no accessory muscle use Cardiovascular: regular rate, rhythm, no edema, no gallop, no JVD, no murmur Abdomen: normal bowel sounds, non tender, soft, no organomegaly Extremities: normal range of motion, non-tender, normal inspection, no pedal edema, no calf tenderness, pelvis stable Neurologic/Psychiatric: rhit II-XII nml as tested, no motor/sensory deficits, alert, normal mood/affect, oriented x 3 Skin: normal color, warm/dry, no rash Laboratory Results Last 24 Hours Test 11/11/16 09:26 White Blood Count 9.02 K/uL Red Blood Count 4.32 M/uL Hemoglobin 13.1 g/dL Hematocrit 39.2 % Mean Corpuscular Volume 90.7 fL Mean Corpuscular Hemoglobin 30.3 pg Mean Corpuscular Hemoglobin Concent 33.4 g/dl RDW Standard Deviation 44.1 fL RDW Coefficient of Variation 13.4 % Platelet Count 220 K/uL Mean Platelet Volume 11.5 fL Sodium Level 139 mmol/L Potassium Level 3.9 mmol/L Chloride Level 104 mmol/L Carbon Dioxide Level 26 mmol/L Anion Gap 9.0 mmol/L Blood Urea Nitrogen 20 mg/dl Creatinine 1.40 mg/dl Est Creatinine Clear Calc Drug Dose 46.7 ml/min Estimated GFR () 53.5 Estimated GFR (Non- 46.1 BUN/Creatinine Ratio 14.4 Random Glucose 165 mg/dl Calcium Level 8.4 mg/dl Assessment and Plan 81-year-old male with a past medical history of coronary artery disease status post cardiac catheterization, hypertension, status post right nephrectomy for renal cell carcinoma presented to the ER with complaints of persistent hematuria which started tonight - Hematuria with clots and urinary retentions, s/p TURP 10/21 likely caused by Plavix and aspirin, holding both urine clear today, will stop irrigation per urology, would like void trial prior to discharge keep corral until tomorrow AM and perform voiding trial, monitor sufficiently to make sure he is voiding - Possible UTI: continue Rocephin, >30WBC on UA but no growth on urine culture - CKD status post right nephrectomy Cr stable, stop fluids - Coronary artery disease: s/p drug eluting stent in February 2016 Continue Lipitor, ramipril, Lopressor will be able to resume Aspirin but should not hold Plavix with recurrent bleeding ideally he should be on Plavix for another 3 months but cannot do this due to recurrent bleeding - Chronic diastolic HF: appears euvolemic, continue Lasix - Hypertension: Continue Norvasc and ramipril , Imdur - Hypothyroidism: Continue Synthroid DVT prophylaxis: SCDs Avoid chemical anticoagulation in light of hematuria DO NOT RESUSCITATE voiding trial in the AM and then plan for d/c home if voiding
[2016-11-11 15:10] VITALS: BP 115/70; PULSE 72; TEMP 37; O2SAT 91
[2016-11-11 23:19] VITALS: BP 148/84; PULSE 75; TEMP 37.4; O2SAT 95
[2016-11-12] MEDS: LEVOTHYROXINE 50 MCG TAB PO SCH (06:01)
[2016-11-12 07:20] VITALS: BP 160/78; PULSE 68; TEMP 36.7; O2SAT 93
[2016-11-12] MEDS: PANTOprazole SOD 40 MG TAB PO SCH (07:56)
[2016-11-12] MEDS: CEFTRIAXONE SOD INJ 1 GM in DEXTROSE 5% ADD-VANTAGE 50ML 50 ML IV SCH (07:56)
[2016-11-12] MEDS: FUROSEMIDE 20 MG TAB PO SCH (07:57)
[2016-11-12] MEDS: METOPROLOL TARTRATE 50 MG TAB PO SCH (07:57)
[2016-11-12] MEDS: ATORVASTATIN 20 MG TAB PO SCH (07:57)
[2016-11-12] MEDS: ISOSORBIDE MONONITRATE 60 MG TABCR PO SCH (07:57)
[2016-11-12] MEDS: AMLODIPINE BESYLATE 5 MG TAB PO SCH (07:57)
[2016-11-12] MEDS: DOCUSATE SODIUM 100 MG CAP PO SCH (07:57)
[2016-11-12] MEDS: ENALAPRIL MALEATE 10 MG TAB PO SCH (07:58)
[2016-11-12] MEDS: FINASTERIDE 5 MG TAB PO SCH (07:58)
[2016-11-12 09:15] VITALS: O2SAT 93
--- NOTE | 2016-11-12 10:17 | Progress Note ---
Subjective Date of Service: Nov 12, 2016. Subjective Pt evaluation today including: conversation w/ patient, physical exam, chart review, lab review, review of inpatient medication list Pain: Denies PO Intake: Lis PO 81 yo male admitted for gross hematuria and retention. He notes his urine was clear in the corral, removed this AM. He has yet to void, no pressure or feeling to do so yet. He again notes frequent, small volume voids prior to admission. Past notes reviewed. Problem List Medical Problems: (1) Bladder mass Status: Acute (2) Hematuria Status: Acute (3) Hematuria Status: Acute (4) Platelet inhibition due to Plavix Status: Acute (5) Urinary retention Status: Acute Review of Systems Constitutional: No fever, No chills Eyes: No worsening of vision ENT: No hearing loss Respiratory: No wheezing, No shortness of breath Cardiac: No chest pain Abdomen: No pain, No nausea, No vomiting Male : + see HPI Neurologic: No memory loss, No paralysis Skin: No new/changing skin lesions, No color change Objective Vital Signs Date Time Temp Pulse Resp B/P (MAP) Pulse Ox O2 Delivery O2 Flow Rate FiO2 11/12/16 09:15 93 Room Air 11/12/16 07:20 36.7 68 18 160/78 (105) 93 Room Air 11/12/16 00:00 Room Air 11/11/16 23:19 37.4 75 18 148/84 (105) 95 Room Air 11/11/16 16:00 Room Air 11/11/16 15:10 37.0 72 18 115/70 (85) 91 Room Air Physical Exam General Appearance: WD/WN, no apparent distress ENT: hearing grossly normal Neck: supple, no adenopathy Respiratory/Chest: no respiratory distress, no accessory muscle use Cardiovascular: no JVD Abdomen: non tender, soft Neurologic/Psychiatric: alert Skin: normal color Assessment and Plan A/P 81 yo male with improved hematuria. Continue finasteride. Trial of void underway. If patient uncomfortable and unable to void insert 18 fr catheter and DC home. Will arrange for f/u in the office in the next week or so for a voiding check, trial of void if he is unable to void. Anticipate DC home today with or without corral. Thank you for allowing us to participate in this patient's inpatient care. Will sign off, please recall PRN new issues or concerns. Discharge planning: home
[2016-11-12] MEDS ORDERED: PRS5 PO (15:17)
--- NOTE | 2016-11-12 15:20 | Discharge Instructions ---
Discharge Instructions Date of Service Nov 12, 2016. Admission Reason for Admission: Acute Urinary Retention, Jaswinder Hematuria Discharge Discharge Diagnosis / Problem: Hematuria due to bleeding prostate, s/p TURP Discharge Goals Goal(s): Improve function, Specific goals (follow up with Dr. Guo) Activity Recommendations Activity Limitations: resume your previous activity Exercise/Sports Limitations: as tolerated Shower/Bathe: no limitations . Instructions / Follow-Up Instructions / Follow-Up Medications: - PLAVIX: continue to hold this medication due to repeated bleeding - ASPIRIN: safe to resume tomorrow - FINASTERIDE: medication to shrink prostate, sent to pharmacy by Dr Samuel, take once a day Hematuria: due to recent TURP and still being on aspirin and Plavix. The bleeding was treated with three way bladder irrigation, clots and bleeding resolved, urine clear for almost 24 hours. Dunham catheter pulled this AM, you voided 100mL several times and then voided 230mL and bladder scan showed no residual urine in bladder, so you are completely emptying bladder. Urinary difficulty: if you notice difficulty voiding you can hold Toviaz FOLLOW UP - you should have an appointment in the next month with Urology, if you have any further difficulties urinating, please call to move up appointment - please call office of Dr. Guo for appointment in the next 2 weeks to discuss holding Plavix and how long you can hold safely your stent was placed January 2016 and ideally you should be on the Plavix for a full year after stent placement the Plavix is being held due to recurrent bleeding also, call office of Dr. Sharpe, since he did the surgery, ask how long he would want you off the Plavix with the recurrent bleeding Current Hospital Diet Patient's current hospital diet: Regular Diet Discharge Diet Recommended Diet: AHA Diet (Heart Healthy) Pending Studies Studies pending at discharge: no Medical Emergencies . Who to Call and When: Medical Emergencies: If at any time you feel your situation is an emergency, please call 911 immediately. . Non-Emergent Contact Non-Emergency issues call your: Primary Care Provider, Urologist Call Non-Emergent contact if: you have a fever, you have any medication questions if you are having difficulty voiding or blood returns, call office of Dr. Sharpe . . "Provider Documentation" section prepared by Colby Collins. . VTE Core Measure Inpt VTE Proph given/why not?: SCD's [place] Drug Monitoring Program Search Results: no issues identified
--- NOTE | 2016-11-12 15:29 | Discharge Summary ---
Discharge Summary Date of Service Nov 12, 2016. Discharge Summary Admission Date: Nov 10, 2016 at 06:17 Discharge Date: Nov 12, 2016 Discharge Disposition: Home Principal Diagnosis: Hematuria due to recent TURP Problems/Secondary Diagnoses: CAD s/p stent Anxiety Hypertension Immunizations: Have You Had Influenza Vaccine: Yes Influenza Vaccine Date: Feb 20, 2013 History of Tetanus Vaccine?: Yes Tetanus Immunization Date: May 23, 2008 History of Pneumococcal: Yes Pneumococcal Date: May 23, 2010 History of Hepatitis B Vaccine: No Procedures: three way bladder irrigation Consultations: Urology Medication Reconciliation New Medications: Finasteride (Finasteride) 5 Mg Tab 5 MG PO DAILY, #30 TABS 1 Refill Continued Medications: Alprazolam (Xanax) 1 Mg Tab 1 MG PO HS PRN for Sleep, TAB Amlodipine Besylate (Norvasc) 5 Mg Tab 5 MG PO DAILY, TAB Aspirin (Aspirin Ec) 81 Mg Tab 81 MG PO DAILY Atorvastatin (Lipitor) 20 Mg Tab 10 MG PO DAILY, TAB Ergocalciferol (Vitamin D 91008 Unit) 50,000 Unit Cap 1 CAP PO WK for 28 Days, #4 CAP 5 Refills SUNDAY Fesoterodine Fumarate (Toviaz) Unknown Strength Tab Unknown Dose PO DAILY, TAB Furosemide (Lasix) 20 Mg Tab 20 MG PO QAM, #30 TAB Isosorbide Mononitrate (Imdur Ext Rel) 60 Mg Tab 60 MG PO QAM, TAB Levothyroxine Sodium (Synthroid) 25 Mcg Tab 50 MCG PO DAILY, TAB Lorazepam (Ativan) 0.5 Mg Tab 0.5 MG PO BID PRN for Anxiety, TAB Metoprolol Tartrate (Lopressor) 50 Mg Tab 50 MG PO BID, TAB Nitroglycerin (Nitrostat) 0.4 Mg Tab 0.4 MG UT PRN PRN for chest pain, BTL Omeprazole (Prilosec) 40 Mg Cap 40 MG PO DAILY, CAP Ramipril (Ramipril) 2.5 Mg Cap 2.5 MG PO DAILY, CAP Tramadol (Ultram) 50 Mg Tab 50 MG PO Q4H PRN for Pain, TAB Discontinued Medications: Clopidogrel (Plavix) 75 Mg Tab 75 MG PO DAILY, TAB Discharge Exam Patient feeling well today, corral pulled this AM, was able to void several times , 100cc first several voids and then 230cc, bladder scan negative for residual urine. Cleared for d/c home by urology. Discussed plan with daughter Arline , she was questioning how long he needs to hold Plavix. Unsure at this time but certainly needs to hold until seen by Urology and he should also follow up with Dr. Guo to discuss. Review of Systems: Constitutional: No fever, No chills, No sweats, No weight loss, No weakness , No fatigue, No problem reported Eyes: No worsening of vision, No eye pain, No redness, No discharge, No diplopia, No problem reported ENT: No hearing loss, No unusual epistaxis, No nasal symptoms, No sore throat, No tinnitus, No dental problems, No trouble swallowing, No problem reported Respiratory: No cough, No sputum, No wheezing, No shortness of breath, No dyspnea on exertion, No dyspnea at rest, No hemoptysis, No problem reported Cardiovascular: No chest pain, No orthopnea, No PND, No edema, No claudication, No palpitations, No problem reported Abdomen: No pain, No nausea, No vomiting, No diarrhea, No constipation, No GI bleeding, No problem reported Musculoskeletal: No joint pain, No muscle pain, No swelling, No calf pain, No problem reported Genitourinary - Male: + urinary frequency, + urinary urgency, No hematuria, No dysuria, No urinary hesitancy, No urinary retention, No urinary incontinence Neurologic: No memory loss, No paralysis, No weakness, No numbness/tingling , No vertigo, No balance problems, No problem reported Psychiatric: No depression symptoms, No anhedonism, No anxiety, No insomnia , No substance abuse, No problem reported Endocrine: No fatigue, No excessive thirst, No excessive urination, No problem reported Hematologic / Lymphatic: No abnormal bleeding/bruising, No clotting problems , No swollen lymph nodes, No night sweats, No problem reported Integumentary: No rash, No itch, No new/changing skin lesions, No color change, No bleeding, No problem reported Physical Exam: General Appearance: WD/WN, no apparent distress Eyes: normal inspection, EOMI, sclerae normal ENT: normal ENT inspection, hearing grossly normal, pharynx normal Neck: supple, no adenopathy, no JVD, trachea midline Respiratory/Chest: chest non-tender, lungs clear, normal breath sounds, no respiratory distress, no accessory muscle use Cardiovascular: regular rate, rhythm, no edema, no gallop, no JVD, no murmur , normal peripheral pulses Abdomen / GI: normal bowel sounds, non tender, soft, no organomegaly Extremities: normal inspection, no calf tenderness, normal capillary refill , no pedal edema, normal range of motion, pelvis stable 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, no motor/sensory deficits , alert, normal mood/affect, normal reflexes, oriented x 3 Skin: normal color, warm/dry, no rash Lymphatic: no adenopathy Hospital Course 81-year-old male with a past medical history of coronary artery disease status post cardiac catheterization, hypertension, status post right nephrectomy for renal cell carcinoma presented to the ER with complaints of persistent hematuria which started tonight - Hematuria with clots and urinary retentions, s/p TURP 10/21 likely caused by Plavix and aspirin, holding both on admission urine clear for over 24 hours, corral d/c today, voided on his own will continue to hold Plavix, can resume Aspirin follow up with Urology within the month, earlier if any new issues arise Finasteride added by urology, told to hold Toviaz if he has further issues urinating - Possible UTI: continue Rocephin, >30WBC on UA but no growth on urine culture no plans for antibiotics on discharge since culture negative - CKD status post right nephrectomy Cr stable, stop fluids - Coronary artery disease: s/p drug eluting stent in February 2016 Continue Lipitor, ramipril, Lopressor will be able to resume Aspirin but should continue to hold Plavix with recurrent bleeding ideally he should be on Plavix for another 3 months instructed patient and daughter to make an appointment with Dr. Guo to discuss also, instructed to discuss with Dr. Sharpe since he performed the TURP, ask how long he wants the Plavix held no chest pain, CAD clinically stable - Chronic diastolic HF: appears euvolemic, continue Lasix - Hypertension: Continue Norvasc and ramipril , Imdur - Hypothyroidism: Continue Synthroid DVT prophylaxis: SCDs Avoid chemical anticoagulation in light of hematuria DO NOT RESUSCITATE Total Time Spent: Greater than 30 minutes This includes examination of the patient, discharge planning, medication reconciliation, and communication with other providers. Discharge Instructions Please refer to the electronic Patient Visit Report (Discharge Instructions) for additional information. Follow-Up Dr. Sharpe within the month Dr. Guo in two weeks Dora Mcmahon as previously scheduled Additional Copies To Dora Mcmahon PA-C; Heath Guo M.D.; Tony Sharpe M.D.
[2016-11-12 15:43] VITALS: BP 160/78; PULSE 68; TEMP 36.7; O2SAT 93
== END 2016-11-12 17:14 | disposition home or self-care (01) | DRG 813 ==
LOC: C.EDB 01:26 → C.4E 06:17 → ENRESERV 06:35
PROVIDERS: ADMIT Family Medicine; ATTEND Internal Medicine
DX: D69.59 Other secondary thrombocytopenia (principal); I50.32 Chronic diastolic (congestive) heart failure; I13.0 Hypertensive heart and chronic kidney disease with heart failure and stage 1 through stage 4 chronic kidney disease, or unspecified chronic kidney disease; R31.0 Gross hematuria; R33.9 Retention of urine, unspecified; T39.015A Adverse effect of aspirin, initial encounter; T45.525A Adverse effect of antithrombotic drugs, initial encounter; I25.10 Atherosclerotic heart disease of native coronary artery without angina pectoris; N32.9 Bladder disorder, unspecified; Z90.5 Acquired absence of kidney; Z85.528 Personal history of other malignant neoplasm of kidney; N18.9 Chronic kidney disease, unspecified; Z95.2 Presence of prosthetic heart valve; E03.9 Hypothyroidism, unspecified; F41.9 Anxiety disorder, unspecified; Y92.009 Unspecified place in unspecified non-institutional (private) residence as the place of occurrence of the external cause